=== PATIENT | female | born 1990 | race Two or more races ===

== ENCOUNTER → 2016-12-09 | Outpatient (CLI) | payer OTHER ==
[2016-04-20 01:48] VITALS: BP 131/83
[~2016-12-09] MED LIST: DOCU-27 PO; ESOM40CA; FERR325T72 PO; IBUP-1060 PO; METO5VIA4 PO; OXYC-323 PO; Ondansetron Hcl/Pf PO
[2016-12-09 16:08] LABS: BASO % 0 % (0-3); EOS % 1 % (0-3); HEMATOCRIT 39.9 % (36.0-47.0); LYMPH # 2.6 x10^3/uL (1.0-4.8); LYMPH % 19 % (24-48); MEAN CORPUSCULAR HEMOGLOBIN 28 pg (25-35); MEAN CORPUSCULAR HGB CONC 33 g/dL (31-37); MEAN CORPUSCULAR VOLUME 85 fL (79-100); MONO % 10 % (0-9); NEUT % 71 % (31-73); PLATELET COUNT 226 x10^3/uL (140-400); RED CELL DISTRIBUTION WIDTH 14.3 % (11.5-14.5); WHITE BLOOD COUNT 13.7 x10^3/uL (4.0-11.0)
== END | disposition home or self-care (01) ==
LOC: LAB 15:21
PROVIDERS: ATTEND Obstetrics & Gynecology
DX: Z32.01 Encounter for pregnancy test, result positive (principal); O21.0 Mild hyperemesis gravidarum; O34.219 Maternal care for unspecified type scar from previous cesarean delivery
CPT/HCPCS: 36415; 85027; 86593; 86703; 86850; 86900; 86901; 87340; 87341

== ENCOUNTER 2017-01-02 16:45 | Emergency (ER) | payer OTHER ==
[~2017-01-02] VITALS: Ht 152.4 cm; Wt 79.8 kg
[2017-01-02 17:03] VITALS: BP 122/78
[2017-01-02] MEDS ORDERED: ACET1TAB33 PO (17:07)
[2017-01-02] MEDS ORDERED: PRED20TA PO (17:07)
--- NOTE | 2017-01-02 17:08 | PHYS DOC ---
Past Medical History Past Medical History: No Pertinent History Past Surgical History: Other Additional Past Surgical Histo: WISDOM TEEETH EXTRACTED Alcohol Use: None Drug Use: None Adult General Chief Complaint Chief Complaint: HIP PAIN HPI HPI Patient is a 26 year old female, who is 11 weeks , presents emergency Department with atraumatic right lower back pain that radiates into her right hip. Patient states is been going on for approximately 5 days. She does not identify any causation for this. Patient denies history of spinal column fractures, spinal cord injuries or neuromuscular diseases. She has no complaints of pelvic pain, lower abdominal pain, vaginal bleeding or vaginal discharge at this time. Patient states that she did call her hand mexican food maker's office. She states she talked warm the nurses there who advised to take acetaminophen and use warm packs. Patient states this has not helped. Review of Systems Review of Systems Constitutional: Denies fever or chills [] Eyes: Denies change in visual acuity, redness, or eye pain [] HENT: Denies nasal congestion or sore throat [] Respiratory: Denies cough or shortness of breath [] Cardiovascular: No additional information not addressed in HPI [] GI: Denies abdominal pain, nausea, vomiting, bloody stools or diarrhea [] : Denies dysuria or hematuria [] Musculoskeletal: Denies back pain or joint pain [] Integument: Denies rash or skin lesions [] Neurologic: Denies headache, focal weakness or sensory changes [] Endocrine: Denies polyuria or polydipsia [] Allergies Allergies Allergies Coded Allergies Type Severity Reaction Last Updated Verified No Known Drug Allergies 11/25/15 No Physical Exam Physical Exam Constitutional: Well developed, well nourished, no acute distress, non-toxic appearance. [] HENT: Normocephalic, atraumatic, bilateral external ears normal, oropharynx moist, no oral exudates, nose normal. [] Eyes: PERRLA, EOMI, conjunctiva normal, no discharge. [] Neck: Normal range of motion, no tenderness, supple, no stridor. [] Cardiovascular:Heart rate regular rhythm, no murmur [] Lungs & Thorax: Bilateral breath sounds clear to auscultation [] Abdomen: Bowel sounds normal, soft, no tenderness, no masses, no pulsatile masses. [] Skin: Warm, dry, no erythema, no rash. [] Back: Patient's back is normal in appearance without any overlying skin lesions suggestive of shingles. She has no CVA tenderness. There is tenderness to palpation to the right paraspinous soft tissues at the level of L5/S1 extending laterally to the posterior right hip. There is no palpable defect, deformity or spasm. Extremities: No tenderness, no cyanosis, no clubbing, ROM intact, no edema. [] Neurologic: Alert and oriented X 3, normal motor function, normal sensory function, no focal deficits noted. [] Psychologic: Affect normal, judgement normal, mood normal. [] EKG EKG [] Radiology/Procedures Radiology/Procedures [] Course & Med Decision Making Course & Med Decision Making Pertinent Labs and Imaging studies reviewed. (See chart for details) [] Dragon Disclaimer Dragon Disclaimer This electronic medical record was generated, in whole or in part, using a voice recognition dictation system. Departure Departure Impression: Primary Impression: Lumbar radiculopathy, acute Disposition: HOME, SELF-CARE Condition: GOOD Referrals: NO PCP (PCP) SANDRA PARMAR Jr, MD Patient Instructions: Lumbosacral Radiculopathy Additional Instructions: 1. Take the medication as prescribed. 2. Review the discharge instructions provided for self-care and reasons to return the emergency department. 3. Contact your hand mexican food maker Thursday morning to schedule follow-up appointment. Scripts Prednisone (PREDNISONE) 20 Mg Tablet 1 TAB PO DAILY, #5 TAB Prov: ISAI OLEARY 01/02/17 Acetaminophen With Codeine (ACETAMINOPHEN-COD #3 TABLET) 1 Each Tablet 1 TAB PO PRN Q6HRS Y for PAIN for 10 Days, TAB Prov: ISAI OLEARY 01/02/17 ISAI OLEARY January 02, 2017 17:08
== END 2017-01-02 17:23 | disposition home or self-care (01) ==
LOC: ER 16:45
DX: O26.891 Other specified pregnancy related conditions, first trimester (principal); M54.16 Radiculopathy, lumbar region; Z3A.11 11 weeks gestation of pregnancy
CPT/HCPCS: 99283

== ENCOUNTER 2017-01-18 10:20 | Observation (INO) | payer OTHER ==
[~2017-01-18] VITALS: Ht 154.9 cm; Wt 79.8 kg
[~2017-01-18 10:20] MED LIST changes: +ACET1TAB33 PO; +PRED20TA PO
[2017-01-18] MEDS ORDERED: ONDANSETRON PF 4 MG/2 ML VIAL. IV ONE (11:00)
[2017-01-18] MEDS ORDERED: IV NORMAL SALINE 1000ML BAG 1,000 ML IV ONE (11:00)
[2017-01-18 11:05] LABS: BILIRUBIN,URINE NEGATIVE (NEG); GLUCOSE,URINE NEGATIVE (NEG); NITRITE,URINE NEGATIVE (NEG); PH,URINE 8.5; PROTEIN,URINE 30 mg/dL (NEG-TRACE)
[2017-01-18 11:44] LABS: BASO # 0.1 x10^3/uL (0.0-0.2); BASO % 1 % (0-3); EOS % 1 % (0-3); HEMATOCRIT 40.6 % (36.0-47.0); HEMOGLOBIN 13.6 g/dL (12.0-15.5); LYMPH # 1.6 x10^3/uL (1.0-4.8); LYMPH % 11 % (24-48); MEAN CORPUSCULAR HEMOGLOBIN 28 pg (25-35); MEAN CORPUSCULAR HGB CONC 34 g/dL (31-37); MEAN CORPUSCULAR VOLUME 84 fL (79-100); MONO % 7 % (0-9); NEUT % 81 % (31-73); PLATELET COUNT 234 x10^3/uL (140-400); RED BLOOD COUNT 4.82 x10^6/uL (3.50-5.40); RED CELL DISTRIBUTION WIDTH 14.2 % (11.5-14.5); WHITE BLOOD COUNT 14.5 x10^3/uL (4.0-11.0)
[2017-01-18 11:51] LABS: BACTERIA,URINE FEW /HPF (0-FEW); SQUAMOUS EPITHELIAL CELL,UR FEW /LPF; WBC,URINE OCC /HPF (0-4)
--- NOTE | 2017-01-18 11:53 | PHYS DOC ---
Past Medical History Past Medical History: Other Additional Past Medical Histor: hyperemesis Past Surgical History: , Other Additional Past Surgical Histo: WISDOM TEEETH EXTRACTED Alcohol Use: None Drug Use: None Adult General Chief Complaint Chief Complaint: NAUSEA/VOMITING/DIARRHA HPI HPI Patient is a 27 year female presenting to the emergency department for evaluation of nausea vomiting inability to hold anything down for the past 3 days. She says that she was constipated for one week and was taking magnesium and other [id number] medications to have a bowel movement and she has had 3 since last night which are liquid appearing. She says that she has some epigastric pain with the nausea and vomiting. The emesis is nonbloody nonbilious and her stools are nonbloody as well. Patient is approximately [address] weeks and follows with Dr. Rivas. Patient denies any vaginal bleeding vaginal discharge and dysuria or hematuria. She reports having severe nausea and vomiting which required a Zofran pump on her prior . She is taking Zofran pills currently. Review of Systems Review of Systems Constitutional: Denies fever or chills [] Eyes: Denies change in visual acuity, redness, or eye pain [] HENT: Denies nasal congestion or sore throat [] Respiratory: Denies cough or shortness of breath [] Cardiovascular: No additional information not addressed in HPI [] GI: + abdominal pain, nausea, vomiting, diarrhea [] : Denies dysuria or hematuria [] Musculoskeletal: Denies back pain or joint pain [] Integument: Denies rash or skin lesions [] Neurologic: Denies headache, focal weakness or sensory changes [] Current Medications Current Medications Current Medications Medications (Trade) Dose Ordered Sig/Irma Start Time Stop Time Status Last Admin Dose Admin Ondansetron HCl (Zofran) 8 mg 1X ONCE 01/18/17 11:00 01/18/17 11:06 DC 01/18/17 11:37 8 MG Sodium Chloride 1,000 ml @ 1,000 mls/hr 1X ONCE 01/18/17 11:00 01/18/17 11:59 DC 01/18/17 11:37 1,000 MLS/HR Allergies Allergies Allergies Coded Allergies Type Severity Reaction Last Updated Verified No Known Drug Allergies 11/25/15 No Physical Exam Physical Exam Constitutional: Well developed, well nourished, no acute distress, non-toxic appearance. [] HENT: Normocephalic, atraumatic, bilateral external ears normal, oropharynx moist, no oral exudates, nose normal. [] Eyes: PERRLA, EOMI, conjunctiva normal, no discharge. [] Neck: Normal range of motion, no tenderness, supple, no stridor. [] Cardiovascular:Heart rate regular rhythm, no murmur [] Lungs & Thorax: Bilateral breath sounds clear to auscultation [] Abdomen: Bowel sounds normal, soft, + epigastric tenderness, no rebound or guarding, no masses, no pulsatile masses. [] Skin: Warm, dry, no erythema, no rash. [] Back: No tenderness, no CVA tenderness. [] Extremities: No tenderness, no cyanosis, no clubbing, ROM intact, no edema. [] Neurologic: Alert and oriented X 3, normal motor function, normal sensory function, no focal deficits noted. [] Current Patient Data Vital Signs Vital Signs Date Time Temp Pulse Resp B/P (MAP) Pulse Ox O2 Delivery O2 Flow Rate FiO2 01/18/17 12:05 92 18 105/55 (72) 100 01/18/17 11:35 Room Air 01/18/17 10:56 98.2 98.2 Lab Values Laboratory Tests Test 01/18/17 10:58 01/18/17 11:30 Urine Collection Type Unknown Urine Color Kim Urine Clarity Turbid Urine pH 8.5 Urine Specific [place] >=1.030 Urine Protein 30 mg/dL (NEG-TRACE) Urine Glucose (UA) Negative mg/dL (NEG) Urine Ketones (Stick) >=80 mg/dL (NEG) Urine Blood Negative (NEG) Urine Nitrite Negative (NEG) Urine Bilirubin Negative (NEG) Urine Urobilinogen Dipstick 1.0 mg/dL (0.2 mg/dL) Urine Leukocyte Esterase Small (NEG) Urine RBC 1-2 /HPF (0-2) Urine WBC Occ /HPF (0-4) Urine Squamous Epithelial Cells Few /LPF Urine Amorphous Sediment Present /HPF Urine Bacteria Few /HPF (0-FEW) Urine Mucus Slight /LPF White Blood Count 14.5 x10^3/uL (4.0-11.0) H Red Blood Count 4.82 x10^6/uL (3.50-5.40) Hemoglobin 13.6 g/dL (12.0-15.5) Hematocrit 40.6 % (36.0-47.0) Mean Corpuscular Volume 84 fL (79-100) Mean Corpuscular Hemoglobin 28 pg (25-35) Mean Corpuscular Hemoglobin Concent 34 g/dL (31-37) Red Cell Distribution Width 14.2 % (11.5-14.5) Platelet Count 234 x10^3/uL (140-400) Neutrophils (%) (Auto) 81 % (31-73) H Lymphocytes (%) (Auto) 11 % (24-48) L Monocytes (%) (Auto) 7 % (0-9) Eosinophils (%) (Auto) 1 % (0-3) Basophils (%) (Auto) 1 % (0-3) Neutrophils # (Auto) 11.7 x10^3uL (1.8-7.7) H Lymphocytes # (Auto) 1.6 x10^3/uL (1.0-4.8) Monocytes # (Auto) 1.0 x10^3/uL (0.0-1.1) Eosinophils # (Auto) 0.1 x10^3/uL (0.0-0.7) Basophils # (Auto) 0.1 x10^3/uL (0.0-0.2) Sodium Level 139 mmol/L (136-145) Potassium Level 4.0 mmol/L (3.5-5.1) Chloride Level 104 mmol/L (98-107) Carbon Dioxide Level 26 mmol/L (21-32) Anion Gap 9 (6-14) Blood Urea Nitrogen 5 mg/dL (7-20) L Creatinine 0.6 mg/dL (0.6-1.0) Estimated GFR (Cockcroft-Gault) 120.8 BUN/Creatinine Ratio 8 (6-20) Glucose Level 91 mg/dL (70-99) Calcium Level 8.9 mg/dL (8.5-10.1) Magnesium Level 2.2 mg/dL (1.8-2.4) Total Bilirubin 0.4 mg/dL (0.2-1.0) Aspartate Amino Transferase (AST) 19 U/L (15-37) Alanine Aminotransferase (ALT) 32 U/L (14-59) Alkaline Phosphatase 68 U/L (46-116) Creatine Kinase 44 U/L (26-192) Total Protein 7.4 g/dL (6.4-8.2) Albumin 3.2 g/dL (3.4-5.0) L Albumin/Globulin Ratio 0.8 (1.0-1.7) L Laboratory Tests 01/18/17 11:30 Laboratory Tests 01/18/17 11:30 EKG EKG [] Radiology/Procedures Radiology/Procedures [] Course & Med Decision Making Course & Med Decision Making We will treat her symptoms check labs and then reassess. Patient says that she is feeling no better so I spoke to her [employer] doctor Darren dawkins and we will plan for admission for further observation and treatment. Dragon Disclaimer Dragon Disclaimer This electronic medical record was generated, in whole or in part, using a voice recognition dictation system. Departure Departure Impression: Primary Impression: Intractable nausea and vomiting Additional Impression: Ketonuria Disposition: ADMITTED INPATIENT Admitting Physician: Other (PEGHEE) Condition: STABLE Referrals: NO PCP (PCP) Problem Qualifiers GER TOWNSEND DO January 18, 2017 11:53
[2017-01-18 11:55] LABS: CALCIUM 8.9 mg/dL (8.5-10.1); CREATININE 0.6 mg/dL (0.6-1.0)
[2017-01-18 11:56] LABS: GFR 120.8
[2017-01-18 12:02] LABS: ALBUMIN 3.2 g/dL (3.4-5.0); ALBUMIN/GLOBULIN RATIO 0.8 (1.0-1.7); MAGNESIUM 2.2 mg/dL (1.8-2.4); TOTAL BILIRUBIN 0.4 mg/dL (0.2-1.0); TOTAL PROTEIN 7.4 g/dL (6.4-8.2)
[2017-01-18] MEDS ORDERED: ONDANSETRON PF 4 MG/2 ML VIAL. IV PRN ×2 (12:30→15:15)
[2017-01-18] MEDS ORDERED: POTASSIUM CL 20MEQ D5-0.45NACL 1,000 ML IV ONE (12:30)
[2017-01-18] MEDS ORDERED: IV RINGERS,LACTATED 1000ML 1,000 ML IV ONE (12:30)
--- NOTE | 2017-01-18 13:25 | PDOC1 ---
OB - History Hx of Present Care: Good Care Ultrasounds: Other (first trimester sono normal) Obstetrical Complications: Hyperemesis (constipation) Medical Complications: None Past Family/Social History * Past Medical, Surgical, Family and Obstetric Histories reviewed from chart. Rubella: Immune RPR/VDRL: Negative GBS Status: Unknown HBsAG: Negative OB - Chief Complaint & HPI Date of Admission: Date of Admission: January 18, 2017 at 12:26 Chief Complaint/History : 2 Para: 1 EGA: 13 Reason for admission: other (Hyperemesis) Admission Nurse Assessment Rev: Yes Problems: OB - Admission Exam Physical Exam Vitals: VS - Last 72 Hours, by Label Date Time Temp Pulse Resp B/P (MAP) Pulse Ox O2 Delivery O2 Flow Rate FiO2 01/18/17 10:56 98.2 84 20 124/64 (84) 99 Room Air 98.2 HEENT: Other (dry mucus membranes) Heart: Regular Rate Lungs: Clear Abdomen: Gravid, Non tender, Soft Extremities: No tenderness or swelling Reflexes: Normal Cervical Dilatation: None Effacement: 0% Station: Ballotable Membranes: Intact Heart Rate: Normal Contractions on Admission: None Text A: 13 wks IUP Hyperemesis Constipation P: Admit for rehydration with IV fluids. Zofran and protonix scheduled. Stool softeners, MOM and fiber for constipation. SANDRA PARMAR Jr, MD January 18, 2017 13:25
[2017-01-18 14:31] VITALS: BP 103/57
[2017-01-18] MEDS ORDERED: DOCUSATE SODIUM 100 MG CAPSULE. PO PRN (15:15)
[2017-01-18] MEDS: PANTOPRAZOLE 40 MG TABLET.DR. PO SCH (16:40)
[2017-01-18] MEDS ORDERED: METOCLOPRAMIDE HCL 10 MG/2 ML VIAL. IV PRN (16:45)
[2017-01-18] MEDS: ONDANSETRON PF 4 MG/2 ML VIAL. IV SCH (16:58)
[2017-01-18] MEDS: IV RINGERS,LACTATED 1000ML 1,000 ML IV SCH (18:22)
[2017-01-18] MEDS ORDERED: MAGNESIUM HYDROXIDE 2,400 MG/30 ML ORAL.SUSP. PO PRN (20:45)
[2017-01-18 23:25] VITALS: BP_SYST 103
[2017-01-19] MEDS: IV RINGERS,LACTATED 1000ML 1,000 ML IV SCH ×3 (00:21→13:00)
[2017-01-19] MEDS: ONDANSETRON PF 4 MG/2 ML VIAL. IV SCH ×4 (00:21→15:26)
--- NOTE | 2017-01-19 00:52 | ACF ---
Admit Criteria Forms Admit Criteria Forms Admit Criteria Forms VOMITING Clinical Indications for Admission to Inpatient Care ( Place 'X' for any and all applicable criteria): Admission is indicated for 1 or more of the following(1)(2)(3): [ ]I. Complete or partial gastrointestinal obstruction [ ]II. Vomiting due to significant metabolic derangement (eg, severe hypercalcemia, diabetic ketoacidosis) [ ]III. Other cause of vomiting requiring hospitalization (eg, poisoning, increased intracranial pressure) [X ]IV. Inpatient admission required rather than observation care because of 1 or more of the following [ ]i) Hemodynamic instability [ X]ii) Vomiting that is severe or persistent indicated by 1 or more of the following 1) Numerous episodes of vomiting in past 24hours (eg, every 1 to 2 hours) 2) Suggests severe underlying cause or complication (eg , projectile, feculent, bilious, coffee ground, bloody) 3) Appropriate antiemetic treatment (eg, repeated oral or parenteral dosing) does not sufficiently reduce vomiting within 12 to 24 hours of treatment ( X) 4) Treatment regimen necessary to adequately control vomiting requires inpatient level of care (eg, not immediately available in outpatient setting) [ ]iii) Severe electrolyte abnormalities requiring inpatient care [ ]iv) Severe pain requiring acute inpatient management( Continuous or frequent (eg, every 2 to 4 hours) parental analgesics or analgesic regimen that can only be performed or initiated in inpatient setting) [ ]v) High fever or infection requiring inpatient admission as indicated by 1 or more of the following(7)(8): [ ]1) Appropriate outpatient or observation care antimicrobial treatment unavailable, not effective, or not feasible [ ]2) Documented bacteremia [ ]3) Temp >104.9 degrees F (40.5 degrees C) (oral) [ ]4) Temp >103.1 degrees F (39.5 C) (oral) or <96.8 degrees F (36 C) (rectal) that does not respond to all emergency treatment measures [ ]vi) Acute renal failure [ ]vii) IV fluid required rather than oral rehydration to replace significant on going losses (greater than 3 L/m2 per day) [ ]viii) Parenteral nutrition regimen that must be implemented on inpatient basis [ ]ix) Other condition, treatment or monitoring requiring inpatient admission Extended stay beyond goal length of stay may be needed for(1)(4): [ ]a) Severe vomiting [ ]b) Persistent vomiting, vital sign changes, severe electrolyte imbalance , or diagnosed cause of vomiting that requires continued hospitalization (eg, gastrointestinal obstruction , increased intracranial pressure) [ ]c) Surgery to treat identified causes of vomiting (eg, bowel obstruction , intracranial process) [ ]d) Comorbid illness that requires inpatient care (eg, acute heart failure , renal failure) [ ]e) Need for inpatient endoscopy The original [employer] content created by [employer] has been revised. The portions of the content which have been revised are identified through the use of italic text or in bold, and [email or web address] has neither reviewed nor approved the modified material. All other unmodified content is copyright [employer]. Please see references footnoted in the original [employer] edition 2016 SO CAMPUZANO January 19, 2017 00:52
[2017-01-19 06:36] VITALS: BP 90/50
[2017-01-19 07:08] LABS: CALCIUM 8.5 mg/dL (8.5-10.1); CREATININE 0.5 mg/dL (0.6-1.0); GFR 149.1; POTASSIUM 3.9 mmol/L (3.5-5.1)
[2017-01-19 07:12] LABS: BASO % 0 % (0-3); EOS % 1 % (0-3); HEMATOCRIT 37.1 % (36.0-47.0); HEMOGLOBIN 11.9 g/dL (12.0-15.5); LYMPH % 18 % (24-48); MEAN CORPUSCULAR HEMOGLOBIN 28 pg (25-35); MEAN CORPUSCULAR HGB CONC 32 g/dL (31-37); MEAN CORPUSCULAR VOLUME 86 fL (79-100); MONO % 8 % (0-9); NEUT % 73 % (31-73); PLATELET COUNT 195 x10^3/uL (140-400); RED BLOOD COUNT 4.31 x10^6/uL (3.50-5.40); WHITE BLOOD COUNT 11.2 x10^3/uL (4.0-11.0)
[2017-01-19 12:30] VITALS: BP 88/48
[2017-01-19] MEDS: PANTOPRAZOLE 40 MG TABLET.DR. PO SCH (15:26)
[2017-01-19 16:40] VITALS: BP 95/49
--- NOTE | 2017-01-19 17:31 | PDOC ---
OB Progress Note Date of Service 01/19/17 Time of Evaluation 6846 Problem List Problems Medical Problems: (1) Hyperemesis gravidarum Status: Acute (2) Intractable nausea and vomiting Status: Acute (3) Ketonuria Status: Acute Notes Pt. feeling much better. She had 2-3 bowel movements since hospitalization. Lab Laboratory Tests Test 01/18/17 10:58 01/18/17 11:30 01/19/17 06:39 Urine Collection Type Unknown Urine Color Kim Urine Clarity Turbid Urine pH 8.5 Urine Specific [place] >=1.030 Urine Protein 30 mg/dL (NEG-TRACE) Urine Glucose (UA) Negative mg/dL (NEG) Urine Ketones (Stick) >=80 mg/dL (NEG) Urine Blood Negative (NEG) Urine Nitrite Negative (NEG) Urine Bilirubin Negative (NEG) Urine Urobilinogen Dipstick 1.0 mg/dL (0.2 mg/dL) Urine Leukocyte Esterase Small (NEG) Urine RBC 1-2 /HPF (0-2) Urine WBC Occ /HPF (0-4) Urine Squamous Epithelial Cells Few /LPF Urine Amorphous Sediment Present /HPF Urine Bacteria Few /HPF (0-FEW) Urine Mucus Slight /LPF White Blood Count 14.5 x10^3/uL (4.0-11.0) 11.2 x10^3/uL (4.0-11.0) Red Blood Count 4.82 x10^6/uL (3.50-5.40) 4.31 x10^6/uL (3.50-5.40) Hemoglobin 13.6 g/dL (12.0-15.5) 11.9 g/dL (12.0-15.5) Hematocrit 40.6 % (36.0-47.0) 37.1 % (36.0-47.0) Mean Corpuscular Volume 84 fL (79-100) 86 fL (79-100) Mean Corpuscular Hemoglobin 28 pg (25-35) 28 pg (25-35) Mean Corpuscular Hemoglobin Concent 34 g/dL (31-37) 32 g/dL (31-37) Red Cell Distribution Width 14.2 % (11.5-14.5) 14.0 % (11.5-14.5) Platelet Count 234 x10^3/uL (140-400) 195 x10^3/uL (140-400) Neutrophils (%) (Auto) 81 % (31-73) 73 % (31-73) Lymphocytes (%) (Auto) 11 % (24-48) 18 % (24-48) Monocytes (%) (Auto) 7 % (0-9) 8 % (0-9) Eosinophils (%) (Auto) 1 % (0-3) 1 % (0-3) Basophils (%) (Auto) 1 % (0-3) 0 % (0-3) Neutrophils # (Auto) 11.7 x10^3uL (1.8-7.7) 8.2 x10^3uL (1.8-7.7) Lymphocytes # (Auto) 1.6 x10^3/uL (1.0-4.8) 2.0 x10^3/uL (1.0-4.8) Monocytes # (Auto) 1.0 x10^3/uL (0.0-1.1) 0.9 x10^3/uL (0.0-1.1) Eosinophils # (Auto) 0.1 x10^3/uL (0.0-0.7) 0.1 x10^3/uL (0.0-0.7) Basophils # (Auto) 0.1 x10^3/uL (0.0-0.2) 0.0 x10^3/uL (0.0-0.2) Sodium Level 139 mmol/L (136-145) 139 mmol/L (136-145) Potassium Level 4.0 mmol/L (3.5-5.1) 3.9 mmol/L (3.5-5.1) Chloride Level 104 mmol/L (98-107) 106 mmol/L (98-107) Carbon Dioxide Level 26 mmol/L (21-32) 24 mmol/L (21-32) Anion Gap 9 (6-14) 9 (6-14) Blood Urea Nitrogen 5 mg/dL (7-20) 3 mg/dL (7-20) Creatinine 0.6 mg/dL (0.6-1.0) 0.5 mg/dL (0.6-1.0) Estimated GFR (Cockcroft-Gault) 120.8 149.1 BUN/Creatinine Ratio 8 (6-20) Glucose Level 91 mg/dL (70-99) 94 mg/dL (70-99) Calcium Level 8.9 mg/dL (8.5-10.1) 8.5 mg/dL (8.5-10.1) Magnesium Level 2.2 mg/dL (1.8-2.4) Total Bilirubin 0.4 mg/dL (0.2-1.0) Aspartate Amino Transf (AST/SGOT) 19 U/L (15-37) Alanine Aminotransferase (ALT/SGPT) 32 U/L (14-59) Alkaline Phosphatase 68 U/L (46-116) Creatine Kinase 44 U/L (26-192) Total Protein 7.4 g/dL (6.4-8.2) Albumin 3.2 g/dL (3.4-5.0) Albumin/Globulin Ratio 0.8 (1.0-1.7) Laboratory Tests Test 01/19/17 06:39 White Blood Count 11.2 x10^3/uL (4.0-11.0) Red Blood Count 4.31 x10^6/uL (3.50-5.40) Hemoglobin 11.9 g/dL (12.0-15.5) Hematocrit 37.1 % (36.0-47.0) Mean Corpuscular Volume 86 fL (79-100) Mean Corpuscular Hemoglobin 28 pg (25-35) Mean Corpuscular Hemoglobin Concent 32 g/dL (31-37) Red Cell Distribution Width 14.0 % (11.5-14.5) Platelet Count 195 x10^3/uL (140-400) Neutrophils (%) (Auto) 73 % (31-73) Lymphocytes (%) (Auto) 18 % (24-48) Monocytes (%) (Auto) 8 % (0-9) Eosinophils (%) (Auto) 1 % (0-3) Basophils (%) (Auto) 0 % (0-3) Neutrophils # (Auto) 8.2 x10^3uL (1.8-7.7) Lymphocytes # (Auto) 2.0 x10^3/uL (1.0-4.8) Monocytes # (Auto) 0.9 x10^3/uL (0.0-1.1) Eosinophils # (Auto) 0.1 x10^3/uL (0.0-0.7) Basophils # (Auto) 0.0 x10^3/uL (0.0-0.2) Sodium Level 139 mmol/L (136-145) Potassium Level 3.9 mmol/L (3.5-5.1) Chloride Level 106 mmol/L (98-107) Carbon Dioxide Level 24 mmol/L (21-32) Anion Gap 9 (6-14) Blood Urea Nitrogen 3 mg/dL (7-20) Creatinine 0.5 mg/dL (0.6-1.0) Estimated GFR (Cockcroft-Gault) 149.1 Glucose Level 94 mg/dL (70-99) Calcium Level 8.5 mg/dL (8.5-10.1) Medications Current Medications Sodium Chloride 1,000 ml @ 1,000 mls/hr 1X ONCE IV Last administered on 11:37; Start 01/18/17 at 11:00; Stop 01/18/17 at 17:03; Status DC Ondansetron HCl (Zofran) 8 mg 1X ONCE IV Last administered on 01/18/17 11:37 ; Start 01/18/17 at 11:00; Stop 01/18/17 at 17:03; Status DC Potassium Chloride/Dextrose/ Sod Cl 1,000 ml @ 125 mls/hr 1X ONCE IV ; Start 01/18/17 at 12:30; Stop 01/18/17 at 12:30; Status DC Ondansetron HCl (Zofran) 4 mg PRN Q8HRS PRN IV NAUSEA/VOMITING; Start 01/18/17 at 12:30; Stop 01/18/17 at 17:03; Status DC Ringer's Solution 1,000 ml @ 175 mls/hr 1X ONCE IV Last administered on 12:47; Start 01/18/17 at 12:30; Stop 01/18/17 at 18:12; Status DC Ondansetron HCl (Zofran) 4 mg PRN Q6HRS PRN IV NAUSEA/VOMITING; Start 01/18/17 at 15:15; Stop 01/18/17 at 17:03; Status DC Pantoprazole Sodium (Protonix) 40 mg DAILYAC PO Last administered on 5/22/17at 15:26; Start 01/18/17 at 15:30 Docusate Sodium (Colace) 100 mg PRN BID PRN PO CONSTIPATION; Start 01/18/17 at 15:15 Ondansetron HCl (Zofran) 8 mg Q6HRS IV Last administered on 01/19/17 15:26; Start 01/18/17 at 17:00 Metoclopramide HCl (Reglan) 10 mg PRN Q8HRS PRN IV NAUSEA/VOMITING; Start 01/18 at 16:45 Ringer's Solution 1,000 ml @ 175 mls/hr Q5H43M IV Last administered on 13:00; Start 01/18/17 at 18:30 Magnesium Hydroxide (Milk Of Magnesia) 2,400 mg PRN DAILY PRN PO CONSTIPATION; Start 01/18/17 at 20:45 Active Scripts Active Prednisone 20 Mg Tablet 1 Tab PO DAILY Acetaminophen-Cod #3 Tablet (Acetaminophen/Codeine Phosphate) 1 Each Tablet 1 Tab PO PRN Q6HRS PRN 10 Days Percocet 5-325 Mg Tablet (Oxycodone/Acetaminophen) 1 Each Tablet 1-2 Tab PO Q4- 6HRS Feosol (Ferrous Sulfate) 325 Mg Tablet 325 Mg PO BIDAFTMEAL Ibuprofen 800 Mg Tablet 800 Mg PO PRN Q8HRS PRN Colace (Docusate Sodium) 100 Mg Capsule 100 Mg PO PRN BID PRN [Ondansetron Hcl/Pf] 4 MG/2 ML Vial 4 Mg PO PRN Q6HRS PRN Metoclopramide Hcl 10 Mg/2 Ml Vial 10 Mg PO PRN Q6HRS PRN Reported Nexium Capsule (Esomeprazole Magnesium) 40 Mg Capsule.dr Assessment 13 wks IUP Constipation: improved Plan of Care: See new orders (D/c home.) SANDRA PARMAR Jr, MD January 19, 2017 17:31
--- NOTE | 2017-01-19 17:32 | DISCH ---
DISCHARGE INSTRUCTIONS Condition on Discharge Condition on Discharge: Stable Activity After Discharge Activity Instructions for Disc: Activity as tolerated Lifting Instructions after Dis: No heavy lifting Driving Instructions after Dis: Do not drive today Diet after Discharge Diet after Discharge: Regular Contacting the DRSaud after DC Call your doctor for: Concerns you may have Follow-Up Follow up with: Dr. Rivas in 1 week. SANDRA RIVAS Jr, MD January 19, 2017 17:32
== END 2017-01-19 18:15 | disposition home or self-care (01) ==
LOC: ER 11:12 → 3 NORTH 12:26
PROVIDERS: ADMIT Obstetrics & Gynecology; ATTEND Obstetrics & Gynecology
DX: O21.0 Mild hyperemesis gravidarum (principal); O26.891 Other specified pregnancy related conditions, first trimester; K59.00 Constipation, unspecified; Z3A.13 13 weeks gestation of pregnancy
CPT/HCPCS: 36415; 80048; 80053; 81001; 82550; 83735; 85027; 87086; 96361; 96374; 96376; 99285; G0378; J2405; J7030; G0379; J7120

== ENCOUNTER → 2017-03-06 | Outpatient (CLI) | payer OTHER ==
[~2017-03-06] MED LIST changes: +DOCU-109 PO; -DOCU-27 PO
--- NOTE | 2017-03-06 14:59 | RAD ---
Obstetrical ultrasound, 03/06/2017: History: survey There is a single intrauterine fetus present in a transverse orientation. The biparietal diameter measures 4.8 cm compatible with a gestational age of 20-21 weeks. This corresponds well to the other measurements and yields a sonographic EDC of 07/19/2017. Normal activity and heart motion were seen. The heart rate was 160 bpm. No specific abnormality is detected. A normal amount of amniotic fluid is present. The placenta lies anteriorly extending laterally to the right. There is no evidence of a placenta previa. The maternal urinary bladder is distended, compressing the lower uterine segment and accentuating the cervical length. IMPRESSION: Single viable intrauterine fetus of 20-21 weeks gestational age as described above.
== END | disposition home or self-care (01) ==
LOC: US 14:03
PROVIDERS: ATTEND Obstetrics & Gynecology
DX: O26.842 Uterine size-date discrepancy, second trimester (principal); Z3A.20 20 weeks gestation of pregnancy
CPT/HCPCS: 76805

== ENCOUNTER 2017-04-24 22:44 | Observation (INO) | payer OTHER ==
[2017-04-24] MEDS ORDERED: ONDANSETRON PF 4 MG/2 ML VIAL. IV PRN (23:00)
[2017-04-24] MEDS ORDERED: IV RINGERS,LACTATED 1000ML 1,000 ML IV SCH (23:00)
[2017-04-24 23:30] LABS: BILIRUBIN,URINE NEGATIVE (NEG); GLUCOSE,URINE NEGATIVE (NEG); NITRITE,URINE NEGATIVE (NEG); PH,URINE 6.5; PROTEIN,URINE NEGATIVE (NEG-TRACE); UROBILINOGEN,URINE 0.2 mg/dL (0.2 mg/dL)
[2017-04-24 23:36] LABS: BACTERIA,URINE 0 /HPF (0-FEW); RBC,URINE 0 /HPF (0-2); SQUAMOUS EPITHELIAL CELL,UR FEW /LPF
== END 2017-04-25 01:10 | disposition home or self-care (01) ==
LOC: 3 SO LND 22:44
PROVIDERS: ADMIT Obstetrics & Gynecology; ATTEND Obstetrics & Gynecology
DX: O21.2 Late vomiting of pregnancy (principal); O26.892 Other specified pregnancy related conditions, second trimester; R10.30 Lower abdominal pain, unspecified; M54.9 Dorsalgia, unspecified; R12 Heartburn; R07.81 Pleurodynia; Z3A.27 27 weeks gestation of pregnancy
CPT/HCPCS: 81001; 87086; G0378; G0379

== ENCOUNTER 2017-06-15 17:36 | Observation (INO) | payer OTHER ==
[2017-07-04] MEDS ORDERED: OXYC-323 PO (16:10)
[2017-07-04] MEDS ORDERED: DOCU-109 PO (16:10)
[2017-07-04] MEDS ORDERED: IBUP-1060 PO (16:10)
== END 2017-06-15 19:55 | disposition home or self-care (01) ==
LOC: 3 SO LND 17:36
PROVIDERS: ADMIT Obstetrics & Gynecology; ATTEND Obstetrics & Gynecology
DX: O26.893 Other specified pregnancy related conditions, third trimester (principal); R10.30 Lower abdominal pain, unspecified; R51 Headache; Z3A.34 34 weeks gestation of pregnancy
CPT/HCPCS: G0378; G0379

== ENCOUNTER 2017-07-01 04:37 | Observation (INO) | payer OTHER ==
[2017-07-01] MEDS ORDERED: IV RINGERS,LACTATED 1000ML 1,000 ML IV SCH (04:44)
[2017-07-01 05:19] LABS: BILIRUBIN,URINE NEGATIVE (NEG); GLUCOSE,URINE NEGATIVE (NEG); NITRITE,URINE NEGATIVE (NEG); PROTEIN,URINE NEGATIVE (NEG-TRACE)
[2017-07-01 05:40] LABS: SQUAMOUS EPITHELIAL CELL,UR FEW /LPF
[2017-07-01 05:41] LABS: BACTERIA,URINE FEW /HPF (0-FEW); RBC,URINE OCC /HPF (0-2)
== END 2017-07-01 07:55 | disposition home or self-care (01) ==
LOC: 3 SO LND 04:37
PROVIDERS: ADMIT Obstetrics & Gynecology; ATTEND Obstetrics & Gynecology
DX: O62.9 Abnormality of forces of labor, unspecified (principal); Z3A.36 36 weeks gestation of pregnancy
CPT/HCPCS: 81001; 87086; G0378; G0379

== ENCOUNTER 2019-03-17 10:33 | Observation (INO) | payer OTHER ==
[~2019-03-17] VITALS: Ht 152.4 cm; Wt 71.2 kg
[~2019-03-17 10:33] MED LIST changes: -OXYC-323 PO; +OXYC1TAB15 PO
[2019-03-17] MEDS ORDERED: IV NORMAL SALINE 1000ML BAG 1,000 ML IV ONE (10:45)
[2019-03-17 11:08] LABS: BASO % 0 % (0-3); EOS % 0 % (0-3); HEMATOCRIT 41.3 % (36.0-47.0); HEMOGLOBIN 13.6 g/dL (12.0-15.5); LYMPH % 15 % (24-48); MEAN CORPUSCULAR HEMOGLOBIN 28 pg (25-35); MEAN CORPUSCULAR HGB CONC 33 g/dL (31-37); MEAN CORPUSCULAR VOLUME 84 fL (79-100); MONO % 8 % (0-9); NEUT # 9.9 x10^3/uL (1.8-7.7); NEUT % 76 % (31-73); PLATELET COUNT 217 x10^3/uL (140-400); RED BLOOD COUNT 4.91 x10^6/uL (3.50-5.40); RED CELL DISTRIBUTION WIDTH 14.7 % (11.5-14.5)
[2019-03-17 11:14] LABS: CREATININE 0.7 mg/dL (0.6-1.0); GFR 99.6; POTASSIUM 3.6 mmol/L (3.5-5.1)
[2019-03-17] MEDS ORDERED: ONDANSETRON PF 4 MG/2 ML VIAL. IV ONE (11:15)
--- NOTE | 2019-03-17 11:16 | PHYS DOC ---
Past Medical History Past Medical History: Other Additional Past Medical Histor: hyperemesis Past Surgical History: , Other Additional Past Surgical Histo: WISDOM TEEETH EXTRACTED Alcohol Use: None Drug Use: None Adult General Chief Complaint Chief Complaint: VOMITING IN HPI HPI Patient is a 29 year old female, accompanied by her , with complaints of nausea and vomiting in . Patient states she was seen by Dr. Blanco yesterday who told her to go to the emergency department if her nausea and vomiting persisted so that she could be admitted to the hospital. Patient states she is 3 para 2, 0. She denies any abdominal pain, abnormal vaginal discharge, dysuria, increased urinary frequency, or hematuria. Patient s tates she has had some spotting with this but denies any at this time. She states she has vomited at least 12 times since yesterday evening. Her last menstrual period was on February 01, 2019, according to her LMP her EDC is November [id number]. Patient denies any pain at this time. Review of Systems Review of Systems Constitutional: Denies fever or chills [] Eyes: Denies change in visual acuity, redness, or eye pain [] HENT: Denies nasal congestion or sore throat; reports dry lips and dry mouth [] Respiratory: Denies cough or shortness of breath [] Cardiovascular: No additional information not addressed in HPI [] GI: Denies abdominal pain, or diarrhea; see history of present illness : Denies dysuria or hematuria; see history of present illness [] Musculoskeletal: Denies back pain or joint pain [] Integument: Denies rash or skin lesions [] Neurologic: Denies headache, focal weakness or sensory changes [] Complete systems were reviewed and found to be within normal limits, except as documented in this note. Current Medications Current Medications Current Medications Medications (Trade) Dose Ordered Sig/Irma Start Time Stop Time Status Last Admin Dose Admin Ondansetron HCl (Zofran) 4 mg 1X ONCE 03/17/19 11:15 03/17/19 11:16 DC 03/17/19 11:17 4 MG Sodium Chloride 1,000 ml @ 1,000 mls/hr 1X ONCE 03/17/19 10:45 03/17/19 11:44 DC 03/17/19 10:45 1,000 MLS/HR Allergies Allergies Allergies Coded Allergies Type Severity Reaction Last Updated Verified No Known Drug Allergies 11/25/15 No Physical Exam Physical Exam Constitutional: Well developed, well nourished, no acute distress, non-toxic appearance. [] HENT: Normocephalic, atraumatic, bilateral external ears normal, dry mucous membranes, dry lips, no oral exudates, nose normal. [] Eyes: conjunctiva normal, no discharge. [] Neck: Normal range of motion, no stridor. [] Cardiovascular:Heart rate regular rhythm, no murmur [] Lungs & Thorax: Bilateral breath sounds clear to auscultation [] Abdomen: Bowel sounds normal, soft, no tenderness, no guarding, no rebound tenderness, no masses, no pulsatile masses. [] Skin: Warm, dry, no erythema, no rash, no tenting [] Extremities: No cyanosis, ROM intact, Neurologic: Alert and oriented X 3, no focal deficits noted. [] Psychologic: Affect normal, judgement normal, mood normal. [] Current Patient Data Vital Signs Vital Signs Date Time Temp Pulse Resp B/P (MAP) Pulse Ox O2 Delivery O2 Flow Rate FiO2 03/17/19 12:45 78 14 97/53 (68) 99 Room Air 03/17/19 10:50 98.7 98.7 Lab Values Laboratory Tests Test 03/17/19 10:45 03/17/19 10:49 03/17/19 10:50 Urine Collection Type Unknown Urine Color Yellow Urine Clarity Clear Urine pH 6.0 Urine Specific [place] 1.025 Urine Protein Negative mg/dL (NEG-TRACE) Urine Glucose (UA) Negative mg/dL (NEG) Urine Ketones (Stick) Negative mg/dL (NEG) Urine Blood Negative (NEG) Urine Nitrite Negative (NEG) Urine Bilirubin Negative (NEG) Urine Urobilinogen Dipstick 1.0 mg/dL (0.2 mg/dL) Urine Leukocyte Esterase Small (NEG) Urine RBC 0 /HPF (0-2) Urine WBC 1-4 /HPF (0-4) Urine Squamous Epithelial Cells Few /LPF Urine Bacteria 0 /HPF (0-FEW) POC Urine HCG, Qualitative Hcg positive (Negative) White Blood Count 13.0 x10^3/uL (4.0-11.0) H Red Blood Count 4.91 x10^6/uL (3.50-5.40) Hemoglobin 13.6 g/dL (12.0-15.5) Hematocrit 41.3 % (36.0-47.0) Mean Corpuscular Volume 84 fL (79-100) Mean Corpuscular Hemoglobin 28 pg (25-35) Mean Corpuscular Hemoglobin Concent 33 g/dL (31-37) Red Cell Distribution Width 14.7 % (11.5-14.5) H Platelet Count 217 x10^3/uL (140-400) Neutrophils (%) (Auto) 76 % (31-73) H Lymphocytes (%) (Auto) 15 % (24-48) L Monocytes (%) (Auto) 8 % (0-9) Eosinophils (%) (Auto) 0 % (0-3) Basophils (%) (Auto) 0 % (0-3) Neutrophils # (Auto) 9.9 x10^3/uL (1.8-7.7) H Lymphocytes # (Auto) 2.0 x10^3/uL (1.0-4.8) Monocytes # (Auto) 1.0 x10^3/uL (0.0-1.1) Eosinophils # (Auto) 0.0 x10^3/uL (0.0-0.7) Basophils # (Auto) 0.0 x10^3/uL (0.0-0.2) Sodium Level 139 mmol/L (136-145) Potassium Level 3.6 mmol/L (3.5-5.1) Chloride Level 103 mmol/L (98-107) Carbon Dioxide Level 24 mmol/L (21-32) Anion Gap 12 (6-14) Blood Urea Nitrogen 9 mg/dL (7-20) Creatinine 0.7 mg/dL (0.6-1.0) Estimated GFR (Cockcroft-Gault) 99.6 BUN/Creatinine Ratio 13 (6-20) Glucose Level 100 mg/dL (70-99) H Calcium Level 9.0 mg/dL (8.5-10.1) Magnesium Level 1.8 mg/dL (1.8-2.4) Total Bilirubin 0.5 mg/dL (0.2-1.0) Aspartate Amino Transferase (AST) 15 U/L (15-37) Alanine Aminotransferase (ALT) 23 U/L (14-59) Alkaline Phosphatase 55 U/L (46-116) Total Protein 7.6 g/dL (6.4-8.2) Albumin 3.9 g/dL (3.4-5.0) Albumin/Globulin Ratio 1.1 (1.0-1.7) Laboratory Tests 03/17/19 10:50 Laboratory Tests 03/17/19 10:50 EKG EKG [] Radiology/Procedures Radiology/Procedures [] Course & Med Decision Making Course & Med Decision Making Pertinent Labs and Imaging studies reviewed. (See chart for details) dx: hyperemesis gravidarum CBC unremarkable, glucose 100 cmp otherwise unremarkable, UA 1-4 WBC, no bacteria, negative nitrites Pt given 1L of NS in the ER and 4 mg zofran IV. decreased nausea and no vomiting after meds. [address] Rivas will admit patient for observation for hyperemesis gravidarum [] Dragon Disclaimer Dragon Disclaimer This electronic medical record was generated, in whole or in part, using a voice recognition dictation system. Departure Departure Impression: Primary Impression: Hyperemesis gravidarum Disposition: 09 ADMITTED INPATIENT Admitting Physician: ELA (steve) Condition: STABLE Referrals: SANDRA RIVAS Jr, MD (PCP) MARTELL DAUGHERTY WEIR FISHERMAN Mar 17, 2019 11:16
[2019-03-17 11:20] LABS: ALBUMIN 3.9 g/dL (3.4-5.0); ALBUMIN/GLOBULIN RATIO 1.1 (1.0-1.7); MAGNESIUM 1.8 mg/dL (1.8-2.4); TOTAL BILIRUBIN 0.5 mg/dL (0.2-1.0); TOTAL PROTEIN 7.6 g/dL (6.4-8.2)
[2019-03-17 11:57] LABS: BILIRUBIN,URINE NEGATIVE (NEG); CLARITY,URINE CLEAR; COLOR,URINE YELLOW; NITRITE,URINE NEGATIVE (NEG); PROTEIN,URINE NEGATIVE (NEG-TRACE)
[2019-03-17 12:28] LABS: BACTERIA,URINE 0 /HPF (0-FEW); RBC,URINE 0 /HPF (0-2); SQUAMOUS EPITHELIAL CELL,UR FEW /LPF
[2019-03-17] MEDS ORDERED: ONDANSETRON PF 4 MG/2 ML VIAL. IV PRN (13:00)
[2019-03-17] MEDS ORDERED: ONDANSETRON PF 4 MG/2 ML VIAL. IV SCH (13:30)
[2019-03-17] MEDS ORDERED: METOCLOPRAMIDE HCL 10 MG/2 ML VIAL. IV PRN (13:30)
[2019-03-17] MEDS: PROMETHAZINE 25 MG SUPP.RECT. PR SCH ×2 (14:26→20:54)
[2019-03-17 14:43] VITALS: BP 95/64
--- NOTE | 2019-03-17 15:28 | RAD ---
Indication: patient ultrasound for determining dates of . TECHNIQUE: Ultrasound OB less than 14 weeks. COMPARISON: None FINDINGS: Uterus is anteverted and measures 10.7 x 5.0 x 6.8 cm. Single intrauterine line cystic structure is seen with mean sac diameter of 1.8 cm corresponding to gestation age of 6 weeks 5 days. Yolk sac is seen and measures 2.4 mm. No pole seen.. Right ovary measures 3.9 x 2.7 x 3.9 cm and shows blood flow. Cervix is closed and measures 3.7 cm in length. Left ovary not visualized. No free pelvic fluid. IMPRESSION: Intrauterine gestation sac without visualization of pole. Findings may be secondary to early although failed first trimester is not ruled out. Follow-up ultrasound and correlation with Electronically signed by: Dwain Medeiros DO (03/17/2019 3:25 PM) [facility]
[2019-03-17 18:00] VITALS: BP 102/82
[2019-03-17] MEDS: IV RINGERS,LACTATED 1000ML 1,000 ML IV SCH (20:10)
[2019-03-17 21:00] VITALS: BP 103/56
[2019-03-18 05:00] VITALS: BP 105/60
--- NOTE | 2019-03-18 06:03 | NUR ---
The patient had a very uneventful night. No nausea, or vomiting. Able to drink fluids without any complications. Ambulated to and from the bathroom and around the room. IVF infusing without any sign or symptoms of complications. Currently resting quietly with eyes closed. Mother at the bedside. Call calderon is in reach.
[2019-03-18 08:05] VITALS: BP 98/51
[2019-03-18] MEDS: IV RINGERS,LACTATED 1000ML 1,000 ML IV SCH (08:54)
[2019-03-18] MEDS: PROMETHAZINE 25 MG SUPP.RECT. PR SCH (08:54)
[2019-03-18] MEDS ORDERED: ONDANSETRON PF 4 MG/2 ML VIAL. IV PRN (09:00)
--- NOTE | 2019-03-18 12:51 | PDOC1 ---
OB - History Hx of Present Care: Limited Care Ultrasounds: No ultrasounds Obstetrical Complications: Hyperemesis Medical Complications: None Past Family/Social History * Past Medical, Surgical, Family and Obstetric Histories reviewed from chart. Rubella: Immune RPR/VDRL: Negative GBS Status: Unknown HBsAG: Negative OB - Chief Complaint & HPI Date of Admission: Date of Admission: Mar 17, 2019 at 12:51 Chief Complaint/History : 3 Para: 2 EGA: 6 Reason for admission: observation, other (Hyperemesis gravidarum) Admission Nurse Assessment Rev: Yes OB - Admission Exam Physical Exam Vitals: VS - Last 72 Hours, by Label Date Time Temp Pulse Resp B/P (MAP) Pulse Ox O2 Delivery O2 Flow Rate FiO2 03/18/19 08:05 97.5 74 18 98/51 (67) 99 Room Air 97.5 03/18/19 05:00 98.5 78 105/60 (75) 98 98.5 03/17/19 21:00 99.0 76 103/56 (72) 98 99.0 03/17/19 18:00 98.8 78 18 102/82 (89) 98.8 03/17/19 14:43 99.1 78 18 95/64 (74) 98 Room Air 99.1 03/17/19 13:15 77 14 111/58 (75) 99 Room Air 03/17/19 12:45 78 14 97/53 (68) 99 Room Air 03/17/19 12:15 68 14 97/57 (70) 99 Room Air 03/17/19 11:45 69 14 89/50 (63) 99 Room Air 03/17/19 11:15 73 14 97/52 (67) 100 Room Air 03/17/19 10:50 98.7 83 16 109/59 (76) 99 Room Air 98.7 HEENT: Other (dry mucous membranes) Lungs: Clear Abdomen: Gravid, Non tender, Soft Extremities: No tenderness or swelling Reflexes: Normal Cervical Dilatation: None Effacement: 0% Station: Ballotable Membranes: Intact Contractions on Admission: None Text A: 6 wks IUP Hyperemesis Gravidarum Dehydration P: Observation for IV hydration and antiemetics. SANDRA PARMAR Jr, MD Mar 18, 2019 12:51
--- NOTE | 2019-03-18 14:34 | DISCH ---
DISCHARGE INSTRUCTIONS Condition on Discharge Condition on Discharge: Stable Activity After Discharge Activity Instructions for Disc: Activity as tolerated Lifting Instructions after Dis: No heavy lifting, No pulling or pushing, Do not lift >10 pounds Driving Instructions after Dis: Do not drive today Weight Bearing Status after Di: As tolerated Diet after Discharge Diet after Discharge: Regular Diet Texture: Regular Contacting the DRSaud after DC Call your doctor for: Concerns you may have Follow-Up Follow up with: Dr. Rivas in 3 weeks. Treatment/Equipment after DC Adaptive Equipment Issued: None SANDRA RIVAS Jr, MD Mar 18, 2019 14:34
[2019-03-18 14:50] VITALS: BP 96/56
--- NOTE | 2019-03-18 15:35 | NUR ---
Discharge Note: Pt. denies questions or needs. Pt. states discharge medications prescribed by Dr. Rivas have already been filled from her last OB appointment. Ambulatory, denies need for WC. Pt. discharged home with family and belongings. Narcisa Vela RN
== END 2019-03-18 15:35 | disposition home or self-care (01) ==
LOC: ER 10:33 → 3 NORTH 12:51
PROVIDERS: ADMIT Obstetrics & Gynecology; ATTEND Obstetrics & Gynecology
DX: O21.0 Mild hyperemesis gravidarum (principal); O99.281 Endocrine, nutritional and metabolic diseases complicating pregnancy, first trimester; E86.0 Dehydration; Z3A.01 Less than 8 weeks gestation of pregnancy
CPT/HCPCS: 36415; 76801; 80053; 81001; 81025; 83735; 85025; 87086; 96361; 96374; 96376; 99284; G0378; J2405; J7030; J7120; G0379

== ENCOUNTER 2019-04-06 11:07 | Emergency (ER) | payer OTHER ==
[~2019-04-06] VITALS: Ht 152.4 cm; Wt 71.0 kg
[2019-04-06] MEDS ORDERED: IV NORMAL SALINE 1000ML BAG 1,000 ML IV ONE (12:45)
[2019-04-06] MEDS ORDERED: ONDANSETRON PF 4 MG/2 ML VIAL. IV ONE (13:00)
[2019-04-06] MEDS ORDERED: PROCHLORPERAZINE 10 MG/2 ML VIAL. IV ONE (13:00)
[2019-04-06 13:03] LABS: BASO % 0 % (0-3); EOS # 0.1 x10^3/uL (0.0-0.7); EOS % 1 % (0-3); HEMATOCRIT 40.5 % (36.0-47.0); HEMOGLOBIN 13.3 g/dL (12.0-15.5); LYMPH % 21 % (24-48); MEAN CORPUSCULAR HEMOGLOBIN 28 pg (25-35); MEAN CORPUSCULAR HGB CONC 33 g/dL (31-37); MEAN CORPUSCULAR VOLUME 84 fL (79-100); MONO % 10 % (0-9); NEUT # 6.7 x10^3/uL (1.8-7.7); NEUT % 69 % (31-73); PLATELET COUNT 205 x10^3/uL (140-400); RED BLOOD COUNT 4.82 x10^6/uL (3.50-5.40); WHITE BLOOD COUNT 9.8 x10^3/uL (4.0-11.0)
[2019-04-06 13:03] LABS: BILIRUBIN,URINE NEGATIVE (NEG); CLARITY,URINE CLEAR; COLOR,URINE YELLOW; NITRITE,URINE NEGATIVE (NEG); PH,URINE 6.5; PROTEIN,URINE NEGATIVE (NEG-TRACE); UROBILINOGEN,URINE 0.2 mg/dL (0.2 mg/dL)
[2019-04-06 13:09] LABS: BARBITURATES NEG (NEG); BENZODIAZEPINES NEG (NEG); CANNABINOIDS NEG (NEG); COCAINE NEG (NEG); METHADONE NEG (NEG); OPIATES NEG (NEG); PHENCYCLIDINE NEG (NEG)
[2019-04-06 13:11] LABS: HYALINE CASTS, URINE FEW /HPF; SQUAMOUS EPITHELIAL CELL,UR MOD /LPF
[2019-04-06 13:13] LABS: BACTERIA,URINE FEW /HPF (0-FEW); RBC,URINE 0 /HPF (0-2)
[2019-04-06 13:17] LABS: AMPHETAMINE/METHAMPHETAMINE NEG (NEG)
[2019-04-06] MEDS ORDERED: PROMETHAZINE 12.5 MG TABLET. ONE (13:24)
[2019-04-06 13:34] LABS: CALCIUM 8.8 mg/dL (8.5-10.1); CREATININE 0.6 mg/dL (0.6-1.0); POTASSIUM 3.6 mmol/L (3.5-5.1)
[2019-04-06 13:40] LABS: ALBUMIN 3.2 g/dL (3.4-5.0); ALBUMIN/GLOBULIN RATIO 0.9 (1.0-1.7); TOTAL BILIRUBIN 0.2 mg/dL (0.2-1.0); TOTAL PROTEIN 6.9 g/dL (6.4-8.2)
[2019-04-06] MEDS ORDERED: PROMETHAZINE 12.5 MG TABLET. PO ONE (13:45)
[2019-04-06] MEDS ORDERED: cefTRIAXone IV Push 1 GM VIAL. IVP ONE (14:30)
[2019-04-06 14:45] VITALS: BP 100/58
[2019-04-06] MEDS ORDERED: CEPH500C PO (14:50)
[2019-04-06] MEDS ORDERED: METO10TA81 PO (14:50)
--- NOTE | 2019-04-06 14:50 | PHYS DOC ---
Past Medical History Past Medical History: Other Additional Past Medical Histor: hyperemesis Past Surgical History: Additional Past Surgical Histo: BLADDER SURGERY Alcohol Use: None Drug Use: None Adult General Chief Complaint Chief Complaint: VOMITING IN HPI HPI Patient is a 29 year old female 3 para 2 currently 9 weeks presenting to the ED today with nausea and vomiting that began yesterday. Patient is also complaining of dysuria. Denies any abdominal pain. She states she's had issues with since the beginning of this . She is currently on Zofran and promethazine suppositories which she states she tried with minimal relief Review of Systems Review of Systems Constitutional: Denies fever or chills [] Eyes: Denies change in visual acuity, redness, or eye pain [] HENT: Denies nasal congestion or sore throat [] Respiratory: Denies cough or shortness of breath [] Cardiovascular: No additional information not addressed in HPI [] GI: Reports nausea, vomiting in , denies abdominal pain, bloody stools or diarrhea [] : Denies dysuria or hematuria [] Musculoskeletal: Denies back pain or joint pain [] Integument: Denies rash or skin lesions [] Neurologic: Denies headache, focal weakness or sensory changes [] All other systems were reviewed and found to be within normal limits, except as documented in this note. Current Medications Current Medications Current Medications Medications (Trade) Dose Ordered Sig/Irma Start Time Stop Time Status Last Admin Dose Admin Ceftriaxone Sodium (Rocephin) 1 gm 1X ONCE 04/06/19 14:30 04/06/19 14:31 DC 04/06/19 14:36 1 GM Ondansetron HCl (Zofran) 4 mg 1X ONCE 04/06/19 13:00 04/06/19 13:01 DC 04/06/19 13:03 4 MG Prochlorperazine Edisylate (Compazine) 10 mg 1X ONCE 04/06/19 13:00 04/06/19 13:01 DC 04/06/19 13:03 10 MG Promethazine HCl (Phenergan) 12.5 mg STK-MED ONCE 04/06/19 13:24 04/06/19 13:24 DC Sodium Chloride 1,000 ml @ 1,000 mls/hr 1X ONCE 04/06/19 12:45 04/06/19 13:44 DC 04/06/19 13:03 1,000 MLS/HR Allergies Allergies Allergies Coded Allergies Type Severity Reaction Last Updated Verified No Known Drug Allergies 11/25/15 No Physical Exam Physical Exam Constitutional: Well developed, well nourished, no acute distress, non-toxic appearance. [] HENT: Normocephalic, atraumatic, bilateral external ears normal, oropharynx moist, no oral exudates, nose normal. [] Eyes: PERRLA, EOMI, conjunctiva normal, no discharge. [] Neck: Normal range of motion, no tenderness, supple, no stridor. [] Cardiovascular:Heart rate regular rhythm, no murmur [] Lungs & Thorax: Bilateral breath sounds clear to auscultation [] Abdomen: Bowel sounds normal, soft, no tenderness, no masses, no pulsatile masses. [] Skin: Warm, dry, no erythema, no rash. [] Back: No tenderness, no CVA tenderness. [] Extremities: No tenderness, no cyanosis, no clubbing, ROM intact, no edema. [] Neurologic: Alert and oriented X 3, normal motor function, normal sensory function, no focal deficits noted. [] Psychologic: Affect normal, judgement normal, mood normal. [] Current Patient Data Vital Signs Vital Signs Date Time Temp Pulse Resp B/P (MAP) Pulse Ox O2 Delivery O2 Flow Rate FiO2 04/06/19 12:43 98.2 85 16 111/60 (77) 100 Room Air 98.2 Lab Values Laboratory Tests Test 04/06/19 12:38 04/06/19 12:50 Urine Collection Type Unknown Urine Color Yellow Urine Clarity Clear Urine pH 6.5 Urine Specific [place] 1.025 Urine Protein Negative mg/dL (NEG-TRACE) Urine Glucose (UA) Negative mg/dL (NEG) Urine Ketones (Stick) Negative mg/dL (NEG) Urine Blood Negative (NEG) Urine Nitrite Negative (NEG) Urine Bilirubin Negative (NEG) Urine Urobilinogen Dipstick 0.2 mg/dL (0.2 mg/dL) Urine Leukocyte Esterase Small (NEG) Urine RBC 0 /HPF (0-2) Urine WBC 11-20 /HPF (0-4) Urine Squamous Epithelial Cells Mod /LPF Urine Bacteria Few /HPF (0-FEW) Urine Hyaline Casts Few /HPF Urine Mucus Marked /LPF Urine Opiates Screen Neg (NEG) Urine Methadone Screen Neg (NEG) Urine Barbiturates Neg (NEG) Urine Phencyclidine Screen Neg (NEG) Urine Amphetamine/Methamphetamine Neg (NEG) Urine Benzodiazepines Screen Neg (NEG) Urine Cocaine Screen Neg (NEG) Urine Cannabinoids Screen Neg (NEG) Urine Ethyl Alcohol Neg (NEG) White Blood Count 9.8 x10^3/uL (4.0-11.0) Red Blood Count 4.82 x10^6/uL (3.50-5.40) Hemoglobin 13.3 g/dL (12.0-15.5) Hematocrit 40.5 % (36.0-47.0) Mean Corpuscular Volume 84 fL (79-100) Mean Corpuscular Hemoglobin 28 pg (25-35) Mean Corpuscular Hemoglobin Concent 33 g/dL (31-37) Red Cell Distribution Width 15.0 % (11.5-14.5) H Platelet Count 205 x10^3/uL (140-400) Neutrophils (%) (Auto) 69 % (31-73) Lymphocytes (%) (Auto) 21 % (24-48) L Monocytes (%) (Auto) 10 % (0-9) H Eosinophils (%) (Auto) 1 % (0-3) Basophils (%) (Auto) 0 % (0-3) Neutrophils # (Auto) 6.7 x10^3/uL (1.8-7.7) Lymphocytes # (Auto) 2.0 x10^3/uL (1.0-4.8) Monocytes # (Auto) 1.0 x10^3/uL (0.0-1.1) Eosinophils # (Auto) 0.1 x10^3/uL (0.0-0.7) Basophils # (Auto) 0.0 x10^3/uL (0.0-0.2) Maternal Serum HCG Beta Subunit 570156 mIU/mL (0-5) H Sodium Level 138 mmol/L (136-145) Potassium Level 3.6 mmol/L (3.5-5.1) Chloride Level 103 mmol/L (98-107) Carbon Dioxide Level 26 mmol/L (21-32) Anion Gap 9 (6-14) Blood Urea Nitrogen 7 mg/dL (7-20) Creatinine 0.6 mg/dL (0.6-1.0) Estimated GFR (Cockcroft-Gault) 119.0 BUN/Creatinine Ratio 12 (6-20) Glucose Level 89 mg/dL (70-99) Calcium Level 8.8 mg/dL (8.5-10.1) Total Bilirubin 0.2 mg/dL (0.2-1.0) Aspartate Amino Transferase (AST) 15 U/L (15-37) Alanine Aminotransferase (ALT) 21 U/L (14-59) Alkaline Phosphatase 52 U/L (46-116) Total Protein 6.9 g/dL (6.4-8.2) Albumin 3.2 g/dL (3.4-5.0) L Albumin/Globulin Ratio 0.9 (1.0-1.7) L Ethyl Alcohol Level < 10 mg/dL (0-10) Laboratory Tests 04/06/19 12:50 Laboratory Tests 04/06/19 12:50 EKG EKG [] Radiology/Procedures Radiology/Procedures [] Course & Med Decision Making Course & Med Decision Making Pertinent Labs and Imaging studies reviewed. (See chart for details) This is a 29-year-old female patient 3 para 2 currently 9 weeks presenting to the ED today with nausea vomiting and as well as dysuria. CBC, CMP with no acute findings. Urine analysis is noted for small amount of leukocytes, urine appears contaminated though patient has dysuria and is . Patient was given IV fluids, Rocephin, Compazine, promethazine and Zofran. Feeling better. Tolerating Sprite and crackers right now. D/c on keflex and reglan. Follow-up with DATABASE CONSULTANT in the course of this week or next week. Dragon Disclaimer Dragon Disclaimer This electronic medical record was generated, in whole or in part, using a voice recognition dictation system. Departure Departure Impression: Primary Impression: Hyperemesis gravidarum Additional Impression: UTI (urinary tract infection) Disposition: 01 HOME, SELF-CARE Condition: STABLE Referrals: SANDRA PARMAR Jr, MD (PCP) Follow-up in the course of this week Patient Instructions: Diet - Hyperemesis Gravidarum, Hyperemesis Gravidarum, Urinary Tract Infection Additional Instructions: You were seen for nausea and vomiting in . You also have urinary tract infection, we put you on antibiotics, take them as prescribed. Follow-up with your DATABASE CONSULTANT in the course of this week or next week Scripts Cephalexin (CEPHALEXIN) 500 Mg Capsule 1 CAP PO BID, #14 CAP Prov: ASAF RESENDIZ APRN 04/06/19 Metoclopramide Hcl (REGLAN) 10 Mg Tablet 1 TAB PO TID, #15 TAB Prov: ASAF RESENDIZ APRN 04/06/19 Problem Qualifiers Additional Impression: UTI (urinary tract infection) Urinary tract infection type: site unspecified Hematuria presence: without hematuria Qualified Codes: N39.0 - Urinary tract infection, site not specified ASAF RESENDIZ APRN Apr 06, 2019 14:50
== END 2019-04-06 15:27 | disposition home or self-care (01) ==
LOC: ER 11:07
DX: O21.0 Mild hyperemesis gravidarum (principal); O23.41 Unspecified infection of urinary tract in pregnancy, first trimester; Z98.890 Other specified postprocedural states; Z3A.09 9 weeks gestation of pregnancy
CPT/HCPCS: 36415; 80053; 80307; 81001; 84702; 85025; 87086; 96361; 96374; 96375; 99284; G0480; J0696; J0780; J2405; J7030; Q0169

== ENCOUNTER 2019-08-16 05:35 | Observation (INO) | payer OTHER ==
[~2019-08-16] VITALS: Ht 152.4 cm; Wt 78.5 kg
[~2019-08-16 05:35] MED LIST changes: +CEPH500C PO; +METO10TA81 PO
[2019-08-16] MEDS ORDERED: ONDANSETRON PF 4 MG/2 ML VIAL. IV PRN ×2 (05:45→08:45)
[2019-08-16] MEDS ORDERED: ACETAMINOPHEN 325 MG TABLET. PO PRN (05:45)
[2019-08-16] MEDS: IV RINGERS,LACTATED 1000ML 1,000 ML IV SCH ×2 (06:34→08:40)
[2019-08-16 06:55] LABS: BARBITURATES NEG (NEG); BENZODIAZEPINES NEG (NEG); CANNABINOIDS NEG (NEG); COCAINE NEG (NEG); METHADONE NEG (NEG); OPIATES NEG (NEG); PHENCYCLIDINE NEG (NEG)
[2019-08-16 06:56] LABS: AMPHETAMINE/METHAMPHETAMINE NEG (NEG)
[2019-08-16 09:22] LABS: INFLUENZA A PATIENT NEGATIVE (NEGATIVE); INFLUENZA B PATIENT NEGATIVE (NEGATIVE)
[2019-08-16 10:36] LABS: ALBUMIN 2.6 g/dL (3.4-5.0); ALBUMIN/GLOBULIN RATIO 0.7 (1.0-1.7); CALCIUM 8.3 mg/dL (8.5-10.1); CREATININE 0.4 mg/dL (0.6-1.0); GFR 190.1; POTASSIUM 3.6 mmol/L (3.5-5.1); TOTAL BILIRUBIN 0.4 mg/dL (0.2-1.0); TOTAL PROTEIN 6.2 g/dL (6.4-8.2)
[2019-08-16 11:07] LABS: BILIRUBIN,URINE NEGATIVE (NEG); CLARITY,URINE CLEAR; COLOR,URINE YELLOW; NITRITE,URINE NEGATIVE (NEG); PH,URINE 6.5; PROTEIN,URINE NEGATIVE (NEG-TRACE)
[2019-08-16 11:17] LABS: SQUAMOUS EPITHELIAL CELL,UR MOD /LPF
[2019-08-16 11:18] LABS: BACTERIA,URINE 0 /HPF (0-FEW); RBC,URINE RARE /HPF (0-2)
== END 2019-08-16 14:05 | disposition home or self-care (01) ==
LOC: 3 SO LND 05:35
PROVIDERS: ADMIT Obstetrics & Gynecology; ATTEND Obstetrics & Gynecology
DX: O21.2 Late vomiting of pregnancy (principal); Z3A.26 26 weeks gestation of pregnancy
CPT/HCPCS: 36415; 80053; 80307; 81001; 87804; 96361; 96374; G0378; G0379; J2405; J7120

== ENCOUNTER 2019-09-25 22:52 | Observation (INO) | payer OTHER ==
[2019-09-25] MEDS ORDERED: ACETAMINOPHEN 325 MG TABLET. PO PRN (23:00)
[2019-09-25] MEDS ORDERED: IV RINGERS,LACTATED 1000ML 1,000 ML IV SCH (23:00)
[2019-09-25 23:30] LABS: BILIRUBIN,URINE NEGATIVE (NEG); COLOR,URINE YELLOW; NITRITE,URINE NEGATIVE (NEG); PROTEIN,URINE NEGATIVE (NEG-TRACE); UROBILINOGEN,URINE 0.2 mg/dL (0.2 mg/dL)
[2019-09-25 23:34] LABS: CLARITY,URINE CLEAR
[2019-09-25 23:37] LABS: BACTERIA,URINE MANY /HPF (0-FEW); RBC,URINE RARE /HPF (0-2); SQUAMOUS EPITHELIAL CELL,UR MANY /LPF
== END 2019-09-26 00:32 | disposition home or self-care (01) ==
LOC: 3 SO LND 22:52
PROVIDERS: ADMIT Obstetrics & Gynecology; ATTEND Obstetrics & Gynecology
DX: O62.9 Abnormality of forces of labor, unspecified (principal); Z3A.32 32 weeks gestation of pregnancy; Z98.891 History of uterine scar from previous surgery
CPT/HCPCS: 81001; 87086; G0378; G0379

== ENCOUNTER 2019-10-21 16:21 | Inpatient (IN) | payer OTHER ==
[~2019-10-21] VITALS: Ht 152.4 cm; Wt 85.0 kg
[2019-10-21] MEDS ORDERED: ONDANSETRON PF 4 MG/2 ML VIAL. IV PRN (16:45)
[2019-10-21] MEDS ORDERED: MAG HYDROX/ALUMINUM HYD/SIMETH 30 ML ORAL.SUSP PO PRN (16:45)
[2019-10-21] MEDS ORDERED: ACETAMINOPHEN 325 MG TABLET. PO PRN (16:45)
[2019-10-21 16:49] LABS: BILIRUBIN,URINE NEGATIVE (NEG); CLARITY,URINE CLEAR; COLOR,URINE YELLOW; NITRITE,URINE NEGATIVE (NEG); PROTEIN,URINE NEGATIVE (NEG-TRACE); UROBILINOGEN,URINE 0.2 mg/dL (0.2 mg/dL)
[2019-10-21 16:55] LABS: RBC,URINE 0 /HPF (0-2)
[2019-10-21 16:56] LABS: BACTERIA,URINE FEW /HPF (0-FEW); SQUAMOUS EPITHELIAL CELL,UR MOD /LPF
[2019-10-21 16:57] LABS: AMPHETAMINE/METHAMPHETAMINE NEG (NEG); BARBITURATES NEG (NEG); BENZODIAZEPINES NEG (NEG); CANNABINOIDS NEG (NEG); COCAINE NEG (NEG); METHADONE NEG (NEG); OPIATES NEG (NEG); PHENCYCLIDINE NEG (NEG)
--- NOTE | 2019-10-21 18:03 | RAD ---
EXAM: Limited OB Ultrasound INDICATION: Decreased movement TECHNIQUE: Real-time limited obstetrical ultrasound was performed with permanent freeze-frame documentation to assess biophysical profile. COMPARISON: OB ultrasound of 03/17/2019 FINDINGS: POSITION: Cephalic HEART RATE: 135 bpm NIGEL: 13.1 cm PLACENTA: Anterior fundal. Biophysical profile score is as follows: tone: 0 breathin movement: 2 Amniotic fluid: 2 IMPRESSION: Single live intrauterine gestation in cephalic presentation with a biophysical profile score of 4 out of 8. FOR INTERNAL CODING PURPOSES Critical result: Findings reported by technologist Analisa on my behalf to Ana nurse for Dr. SANDRA PARMAR who took the report on his behalf at 10/21/2019 5:35 PM. RESULT CODE: (C) Electronically signed by: Andres Bliss MD (10/21/2019 6:01 PM) [facility]
[2019-10-21 19:00] LABS: ALBUMIN 2.7 g/dL (3.4-5.0); ALBUMIN/GLOBULIN RATIO 0.7 (1.0-1.7); CALCIUM 8.6 mg/dL (8.5-10.1); CREATININE 0.5 mg/dL (0.6-1.0); GFR 146.9; POTASSIUM 3.7 mmol/L (3.5-5.1); TOTAL BILIRUBIN 0.3 mg/dL (0.2-1.0); TOTAL PROTEIN 6.7 g/dL (6.4-8.2)
[2019-10-21] MEDS: BETAMET ACET&NA PHOS 30 MG/5 ML VIAL. IM SCH (19:03)
[2019-10-21] MEDS: IV RINGERS,LACTATED 1000ML 1,000 ML IV SCH (19:04)
[2019-10-22] MEDS: IV RINGERS,LACTATED 1000ML 1,000 ML IV SCH ×3 (02:39→20:21)
--- NOTE | 2019-10-22 09:24 | RAD ---
Biophysical profile: Clinical indications: Decreased movement. Follow-up study from biophysical profile from the day before. Score on that study was 4 out of 8.. COMPARISON: October 21, 2019. Findings: A single intrauterine is present in the cephalic position. heart rate is 126. breathing movements: 0. motion: 2. tone: 0. Amniotic fluid volume: 2. Therefore, the biophysical profile score is 4 out of 8. Cervical length is 4.5 cm. NIGEL using the 4 quadrant method is 10.3 cm. Average umbilical cord S/D ratio is 2.6. Impression: Biophysical profile score remains 4 out of 8. Electronically signed by: Callum Jackson MD (10/22/2019 9:21 AM) [facility]
[2019-10-22] MEDS ORDERED: CITRIC ACID/SODIUM CITRATE 30 ML SOLUTION. PO ONE (09:45)
[2019-10-22] MEDS: BETAMET ACET&NA PHOS 30 MG/5 ML VIAL. IM SCH (10:06)
[2019-10-22 10:08] LABS: BASO # 0.1 x10^3/uL (0.0-0.2); BASO % 0 % (0-3); EOS % 0 % (0-3); HEMATOCRIT 29.8 % (36.0-47.0); HEMOGLOBIN 9.3 g/dL (12.0-15.5); LYMPH # 1.3 x10^3/uL (1.0-4.8); LYMPH % 8 % (24-48); MEAN CORPUSCULAR HEMOGLOBIN 22 pg (25-35); MEAN CORPUSCULAR HGB CONC 31 g/dL (31-37); MEAN CORPUSCULAR VOLUME 71 fL (79-100); MONO % 6 % (0-9); NEUT # 13.5 x10^3/uL (1.8-7.7); NEUT % 85 % (31-73); PLATELET COUNT 187 x10^3/uL (140-400); WHITE BLOOD COUNT 15.9 x10^3/uL (4.0-11.0)
[2019-10-22 11:49] LABS: % BANDS 3 % (0-9); % LYMPHS 6 % (24-48); % MONOS 4 % (0-10); % SEGS 87 % (35-66); ANISOCYTOSIS PRESENT; HYPOCHROMIA PRESENT; MICROCYTOSIS PRESENT; PLT ESTIMATE ADEQUATE (ADEQUATE)
[2019-10-22] MEDS ORDERED: MORPHINE PF 10 MG/10 ML AMPUL. ONE (13:07)
[2019-10-22] MEDS ORDERED: OXYTOCIN 10 UNIT/ML VIAL. ONE ×2 (13:07→16:10)
--- NOTE | 2019-10-22 13:41 | PDOC1 ---
OB - History Hx of Present Care: Good Care Ultrasounds: Normal mid trimester US Obstetrical Complications: None Medical Complications: None Other Concerns: BPP 4/8 Past Family/Social History * Past Medical, Surgical, Family and Obstetric Histories reviewed from chart. Rubella: Immune RPR/VDRL: Negative GBS Status: Unknown HBsAG: Negative OB - Chief Complaint & HPI Date of Admission: Date of Admission: Oct 21, 2019 at 16:21 Chief Complaint/History : 4 Para: 2 EGA: 35 Reason for admission: other (BPP 4/8 and contractions) Indication for : desires repeat Admission Nurse Assessment Rev: Yes OB - Admission Exam Physical Exam HEENT: Normal Heart: Regular Rate Lungs: Clear Abdomen: Gravid, Non tender, Soft Extremities: Edema Reflexes: Normal Cervical Dilatation: Fingertip Effacement: 0% Station: Ballotable Membranes: Intact Accelerations: Accelerations Present Decelerations: Variable decelerations Contractions on Admission: 6-10 Minutes Apart Intensity: Mild Text A: 35 wks IUP PRevious c/s x2 BPP 4/8 P: Admit for repeat c/s. Pt. had repeat sono with repeat score of 4/8 and less amniotic fluid. SANDRA PARMAR Jr, MD Oct 22, 2019 13:41
[2019-10-22] MEDS ORDERED: PHENYLEPHRINE in 0.9% NACL PF 1 MG/10 ML SYRINGE. IV ONE (14:37)
[2019-10-22] MEDS ORDERED: ePHEDrine PF IN SALINE 50 MG/10 ML SYRINGE. IV ONE (14:39)
[2019-10-22] MEDS ORDERED: KETOROLAC 30 MG/ML VIAL. IV PRN (15:00)
[2019-10-22] MEDS ORDERED: METOCLOPRAMIDE HCL 10 MG/2 ML VIAL. ONE (15:04)
--- NOTE | 2019-10-22 15:21 | PDOC4 ---
OB Operative Note Date: Oct 22, 2019 PRE OP DIAGNOSIS: Previoujs C- section (BPP 4/8 and contractions) POST OP DIAGNOSIS: Other (Same) OPERATION PERFORMED: R [facility] Surgeon Dr. Rivas Anesthesia: Regional (Spinal) Blood Loss 700 ml Specimen placenta and OB Findings: Position (Vertex), Sex (Male), (8/9), Weight (6 Lb 14 oz), Nuchal Cord (x1) Complications none Additional Remarks pt. SANDRA Dumont Jr, MD Oct 22, 2019 15:21
[2019-10-22] MEDS ORDERED: MAG HYDROX/ALUMINUM HYD/SIMETH 30 ML ORAL.SUSP PO PRN (15:30)
[2019-10-22] MEDS ORDERED: OXYTOCIN 30 UNIT/500 ML PREMIX 500 ML IV PRN (15:30)
[2019-10-22] MEDS ORDERED: ZOLPIDEM 5 MG TABLET. PO PRN (15:30)
[2019-10-22] MEDS ORDERED: SIMETHICONE 80 MG TAB.CHEW PO PRN (15:30)
[2019-10-22] MEDS ORDERED: diphenhydrAMINE ORAL ELIXIR 12.5 MG/5 ML ML PO PRN (15:30)
[2019-10-22] MEDS ORDERED: ONDANSETRON PF 4 MG/2 ML VIAL. IV PRN (15:30)
[2019-10-22] MEDS ORDERED: 0.9 % SODIUM CHLORIDE 10 ML DISP.SYRIN. IV PRN (15:30)
--- NOTE | 2019-10-22 15:36 | OP ---
DATE OF SURGERY: PREOPERATIVE DIAGNOSES: 1. 35 weeks intrauterine . 2. Previous section. 3. Biophysical profile 4/8 x 2 with decreasing fluid. POSTOPERATIVE DIAGNOSES: 1. 35 weeks intrauterine . 2. Previous section. 3. Biophysical profile 4/8 x 2 with decreasing fluid. PROCEDURE: Repeat low transverse section. SURGEON: Sandra Rivas MD. ANESTHESIA: Spinal. ESTIMATED BLOOD LOSS: 700 mL. COMPLICATIONS: None. FINDINGS: Viable male , Apgars 8 and 9, weight 6 pounds 14 ounces. Three-vessel cord placenta delivered under gentle traction, intact. Nuchal cord x 1. SUMMARY: A 29-year-old 3, para 2 at 35 weeks, presented for decreased movement. The patient underwent biophysical profile, which was 4/8. She had repeat biophysical profile, which again was 4/8 but also had noted decreasing of amniotic fluid. The patient also was having contractions with few variable decelerations. The patient was counseled on the risks and benefits of repeat section, risks, benefits and expectations and voiced clear understanding to proceed. The patient did receive 2 doses of betamethasone to help with lung maturity. DESCRIPTION OF PROCEDURE: The patient was taken to surgery suite and placed in dorsal supine position. She was prepped with ChloraPrep and draped in sterile fashion. After adequate anesthesia, Pfannenstiel skin incision was made with scalpel down to and through the fascia. The fascia was extended laterally using curved Bhagat scissors. Superior edge of fascia was grasped with 2 Juli clamps and dissected free of the abdominal rectus muscles using blunt dissection along with Bovie cautery. The same process took place inferiorly. The abdominal rectus muscles were dissected bluntly at the midline. The peritoneum was grasped with 2 hemostats and entered sharply with Metzenbaum scissors. This incision was extended superiorly as well as inferiorly. The Karsten ring retractor was placed. Low transverse hysterotomy incision was made with scalpel down to and through the amniotic sac, which elicited moderate amount of clear fluid. The hysterotomy incision was extended laterally and superiorly digitally. With aid of fundal pressure, the 's head was delivered in a smooth atraumatic manner. Nuchal cord x 1 was visualized and reduced. With additional fundal pressure, the anterior shoulder was delivered followed by posterior shoulder. Rest of male infant was delivered. was suctioned with bulb syringe orally and nasally, umbilical cord was clamped twice and cut and viable male was handed to waiting nursing staff. Umbilical cord blood and arterial pH was then obtained. Three-vessel cord placenta was delivered under gentle traction, intact. The uterus was then exteriorized and cleared of clot and debris with a moist lap. Hysterotomy incision was reapproximated using #1 Vicryl suture in running locked fashion. [id number] suture was placed in the left apex of the hysterotomy incision for better hemostasis. Uterus palpated firm. Fallopian tubes and ovaries appeared normal bilaterally. Posterior cul-de-sac was cleared of clot and debris with moist lap. The uterus was then returned to the abdomen. Pericolic gutters were cleared of clot and debris with moist lap. Hysterotomy incision was reviewed and was hemostatic. The Karsten ring retractor was removed. The peritoneum was reapproximated using #1 Vicryl suture in running fashion. Abdominal rectus muscles were reapproximated using #1 Vicryl suture in an interrupted fashion. Fascia was reapproximated using Stratafix in a running fashion. Skin was reapproximated using 4-0 Vicryl suture in subcuticular manner. The patient tolerated the procedure well and was taken to recovery room in stable condition. Sponge and needle count correct x 3. SANDRA RIVAS MD DR: JAVIER/roosevelt JOB#: [id number] / [id number]
[2019-10-22] MEDS: FERROUS SULFATE 325 MG TABLET. PO SCH (17:00)
[2019-10-22 17:45] VITALS: BP 109/69
[2019-10-22] MEDS: KETOROLAC 30 MG/ML VIAL. IV PRN (17:55)
[2019-10-22 18:15] VITALS: BP 104/61
[2019-10-22] MEDS ORDERED: PNV1TABL25 PO (19:03)
[2019-10-22 19:31] VITALS: BP 89/52
[2019-10-22 20:46] VITALS: BP 101/60
[2019-10-22 22:29] VITALS: BP 94/66
[2019-10-23] MEDS: IV RINGERS,LACTATED 1000ML 1,000 ML IV SCH ×2 (00:35→04:27)
[2019-10-23] MEDS: KETOROLAC 30 MG/ML VIAL. IV PRN (01:40)
[2019-10-23 04:32] VITALS: BP 103/50
[2019-10-23 05:37] LABS: BASO % 0 % (0-3); EOS % 0 % (0-3); HEMATOCRIT 24.4 % (36.0-47.0); HEMOGLOBIN 7.6 g/dL (12.0-15.5); LYMPH # 1.3 x10^3/uL (1.0-4.8); LYMPH % 6 % (24-48); MEAN CORPUSCULAR HEMOGLOBIN 22 pg (25-35); MEAN CORPUSCULAR HGB CONC 31 g/dL (31-37); MEAN CORPUSCULAR VOLUME 70 fL (79-100); MONO # 2.2 x10^3/uL (0.0-1.1); MONO % 10 % (0-9); NEUT # 17.3 x10^3/uL (1.8-7.7); NEUT % 83 % (31-73); PLATELET COUNT 187 x10^3/uL (140-400); RED BLOOD COUNT 3.48 x10^6/uL (3.50-5.40); RED CELL DISTRIBUTION WIDTH 17.5 % (11.5-14.5); WHITE BLOOD COUNT 20.8 x10^3/uL (4.0-11.0)
[2019-10-23 09:20] VITALS: BP 88/56
[2019-10-23] MEDS: DOCUSATE SODIUM 100 MG CAPSULE. PO PRN (09:25)
[2019-10-23] MEDS: IBUPROFEN 400 MG TABLET. PO PRN ×2 (09:26→19:32)
[2019-10-23] MEDS: FERROUS SULFATE 325 MG TABLET. PO SCH ×2 (09:26→18:15)
[2019-10-23] MEDS: oxyCODONE/APAP 5/325 1 TAB TABLET PO PRN ×2 (09:27→15:31)
--- NOTE | 2019-10-23 13:09 | PDOC ---
OB Progress Note Date of Service 10/23/19 Time of Evaluation 1305 Notes Pt. feeling well. No complaints. Lab Laboratory Tests Test 10/21/19 16:33 10/21/19 18:00 10/22/19 09:25 10/23/19 05:00 Urine Collection Type Unknown Urine Color Yellow Urine Clarity Clear Urine pH 7.0 Urine Specific [place] 1.010 Urine Protein Negative mg/dL (NEG-TRACE) Urine Glucose (UA) Negative mg/dL (NEG) Urine Ketones (Stick) 15 mg/dL (NEG) Urine Blood Negative (NEG) Urine Nitrite Negative (NEG) Urine Bilirubin Negative (NEG) Urine Urobilinogen Dipstick 0.2 mg/dL (0.2 mg/dL) Urine Leukocyte Esterase Moderate (NEG) Urine RBC 0 /HPF (0-2) Urine WBC 11-20 /HPF (0-4) Urine Squamous Epithelial Cells Mod /LPF Urine Bacteria Few /HPF (0-FEW) Urine Opiates Screen Neg (NEG) Urine Methadone Screen Neg (NEG) Urine Barbiturates Neg (NEG) Urine Phencyclidine Screen Neg (NEG) Urine Amphetamine/Methamphetamine Neg (NEG) Urine Benzodiazepines Screen Neg (NEG) Urine Cocaine Screen Neg (NEG) Urine Cannabinoids Screen Neg (NEG) Urine Ethyl Alcohol Neg (NEG) Sodium Level 139 mmol/L (136-145) Potassium Level 3.7 mmol/L (3.5-5.1) Chloride Level 104 mmol/L (98-107) Carbon Dioxide Level 22 mmol/L (21-32) Anion Gap 13 (6-14) Blood Urea Nitrogen 8 mg/dL (7-20) Creatinine 0.5 mg/dL (0.6-1.0) Estimated GFR (Cockcroft-Gault) 146.9 BUN/Creatinine Ratio 16 (6-20) Glucose Level 70 mg/dL (70-99) Calcium Level 8.6 mg/dL (8.5-10.1) Total Bilirubin 0.3 mg/dL (0.2-1.0) Aspartate Amino Transf (AST/SGOT) 17 U/L (15-37) Alanine Aminotransferase (ALT/SGPT) 10 U/L (14-59) Alkaline Phosphatase 327 U/L (46-116) Total Protein 6.7 g/dL (6.4-8.2) Albumin 2.7 g/dL (3.4-5.0) Albumin/Globulin Ratio 0.7 (1.0-1.7) White Blood Count 15.9 x10^3/uL (4.0-11.0) 20.8 x10^3/uL (4.0-11.0) Red Blood Count 4.20 x10^6/uL (3.50-5.40) 3.48 x10^6/uL (3.50-5.40) Hemoglobin 9.3 g/dL (12.0-15.5) 7.6 g/dL (12.0-15.5) Hematocrit 29.8 % (36.0-47.0) 24.4 % (36.0-47.0) Mean Corpuscular Volume 71 fL (79-100) 70 fL (79-100) Mean Corpuscular Hemoglobin 22 pg (25-35) 22 pg (25-35) Mean Corpuscular Hemoglobin Concent 31 g/dL (31-37) 31 g/dL (31-37) Red Cell Distribution Width 17.0 % (11.5-14.5) 17.5 % (11.5-14.5) Platelet Count 187 x10^3/uL (140-400) 187 x10^3/uL (140-400) Neutrophils (%) (Auto) 85 % (31-73) 83 % (31-73) Lymphocytes (%) (Auto) 8 % (24-48) 6 % (24-48) Monocytes (%) (Auto) 6 % (0-9) 10 % (0-9) Eosinophils (%) (Auto) 0 % (0-3) 0 % (0-3) Basophils (%) (Auto) 0 % (0-3) 0 % (0-3) Neutrophils # (Auto) 13.5 x10^3/uL (1.8-7.7) 17.3 x10^3/uL (1.8-7.7) Lymphocytes # (Auto) 1.3 x10^3/uL (1.0-4.8) 1.3 x10^3/uL (1.0-4.8) Monocytes # (Auto) 1.0 x10^3/uL (0.0-1.1) 2.2 x10^3/uL (0.0-1.1) Eosinophils # (Auto) 0.0 x10^3/uL (0.0-0.7) 0.0 x10^3/uL (0.0-0.7) Basophils # (Auto) 0.1 x10^3/uL (0.0-0.2) 0.0 x10^3/uL (0.0-0.2) Segmented Neutrophils % 87 % (35-66) Band Neutrophils % 3 % (0-9) Lymphocytes % 6 % (24-48) Monocytes % 4 % (0-10) Platelet Estimate Adequate (ADEQUATE) Hypochromasia Present Anisocytosis Present Microcytosis Present Laboratory Tests Test 10/23/19 05:00 White Blood Count 20.8 x10^3/uL (4.0-11.0) Red Blood Count 3.48 x10^6/uL (3.50-5.40) Hemoglobin 7.6 g/dL (12.0-15.5) Hematocrit 24.4 % (36.0-47.0) Mean Corpuscular Volume 70 fL (79-100) Mean Corpuscular Hemoglobin 22 pg (25-35) Mean Corpuscular Hemoglobin Concent 31 g/dL (31-37) Red Cell Distribution Width 17.5 % (11.5-14.5) Platelet Count 187 x10^3/uL (140-400) Neutrophils (%) (Auto) 83 % (31-73) Lymphocytes (%) (Auto) 6 % (24-48) Monocytes (%) (Auto) 10 % (0-9) Eosinophils (%) (Auto) 0 % (0-3) Basophils (%) (Auto) 0 % (0-3) Neutrophils # (Auto) 17.3 x10^3/uL (1.8-7.7) Lymphocytes # (Auto) 1.3 x10^3/uL (1.0-4.8) Monocytes # (Auto) 2.2 x10^3/uL (0.0-1.1) Eosinophils # (Auto) 0.0 x10^3/uL (0.0-0.7) Basophils # (Auto) 0.0 x10^3/uL (0.0-0.2) Medications Current Medications Ringer's Solution 1,000 ml @ 125 mls/hr Q8H IV Last administered on 10/22/19at 20:21; Start 10/21/19 at 16:35 Acetaminophen (Tylenol) 650 mg PRN Q6HRS PRN PO PAIN, TEMP > 100.5'F Last administered on 10/22/19at 01:05; Start 10/21/19 at 16:45 Al Hydroxide/Mg Hydroxide (Mylanta Plus Xs) 15 ml PRN Q4HRS PRN PO HEARTBURN / GAS; Start 10/21/19 at 16:45 Ondansetron HCl (Zofran) 4 mg PRN Q6HRS PRN IV NAUSEA; Start 10/21/19 at 16:45; Status Cancel Betamethasone Sodium Phosphate (Celestone Soluspan) 12 mg Q24H IM Last administered on 10/22/19at 10:06; Start 10/21/19 at 19:00; Stop 10/22/19 at 19:01; Status DC Cefazolin Sodium/ Dextrose 50 ml @ 100 mls/hr 1X ONCE IV Last administered on 10/22/19at 11:31; Start 10/22/19 at 10:00; Stop 10/22/19 at 10:29; Status DC Citric Acid/ Sodium Citrate (Bicitra) 30 ml 1X ONCE PO Last administered on 10/22/19at 11:31; Start 10/22/19 at 09:45; Stop 10/22/19 at 09:57; Status DC Oxytocin (Pitocin) 10 unit STK-MED ONCE .ROUTE ; Start 10/22/19 at 13:07; Stop 10/22/19 at 13:07; Status DC Morphine Sulfate (Morphine Preservative Free) 10 mg STK-MED ONCE .ROUTE ; Start 10/22/19 at 13:07; Stop 10/22/19 at 13:07; Status DC Phenylephrine HCl (PHENYLEPHRINE in 0.9% NACL PF) 1 mg STK-MED ONCE IV ; Start 10/22/19 at 14:37; Stop 10/22/19 at 14:37; Status DC Ephedrine Sulfate (ePHEDrine PF IN SALINE SYRINGE) 50 mg STK-MED ONCE IV ; S tart 10/22/19 at 14:39; Stop 10/22/19 at 14:39; Status DC Ketorolac Tromethamine (Toradol 30mg Vial) 30 mg PRN Q6HRS PRN IV PAIN; Start 10/22/19 at 15:00; Stop 10/22/19 at 15:27; Status DC Metoclopramide HCl (Reglan Vial) 10 mg STK-MED ONCE .ROUTE ; Start 10/22/19 at 15:04; Stop 10/22/19 at 15:04; Status DC Sodium Chloride (Normal Saline Flush) 3 ml QSHIFT PRN IV AFTER MEDS AND BLOOD DRAWS; Start 10/22/19 at 15:30 Oxytocin/Sodium Chloride 500 ml @ 125 mls/hr CONT PRN IV EXCESSIVE POST- BLEEDING; Start 10/22/19 at 15:30; Stop 10/22/19 at 23:29; Status DC Ibuprofen (Motrin) 800 mg PRN Q8HRS PRN PO INFLAMMATION Last administered on 10/23/19at 09:26; Start 10/22/19 at 15:30 Ondansetron HCl (Zofran) 4 mg PRN Q6HRS PRN IV NAUSEA/VOMITING Last adminis tered on 10/22/19at 20:21; Start 10/22/19 at 15:30 Docusate Sodium (Colace) 100 mg PRN BID PRN PO CONSTIPATION Last administered on 10/23/19at 09:25; Start 10/22/19 at 15:30 Al Hydroxide/Mg Hydroxide (Mylanta Plus Xs) 30 ml PRN Q4HRS PRN PO HEARTBURN / GAS; Start 10/22/19 at 15:30 Simethicone (Gas-X) 80 mg PRN AFTMEALHC PRN PO GAS / BLOATING Last administered on 10/22/19at 23:47; Start 10/22/19 at 15:30 Diphenhydramine HCl (Benadryl Oral Elixir) 12.5 mg PRN Q6HRS PRN PO ITCHING Last administered on 10/22/19at 23:47; Start 10/22/19 at 15:30 Ferrous Sulfate (Feosol) 325 mg BIDWMEALS PO Last administered on 10/23/19at 09:26; Start 10/22/19 at 17:00 Zolpidem Tartrate (Ambien) 5 mg PRN QHS PRN PO INSOMNIA, MAY REPEAT X1; Start 10/22/19 at 15:30 Oxycodone/ Acetaminophen (Percocet 5/325) 2 tab PRN Q4HRS PRN PO MODERATE PAIN, SEVERE PAIN Last administered on 10/23/19at 09:27; Start 10/22/19 at 15:30 Ketorolac Tromethamine (Toradol 30mg Vial) 30 mg PRN Q6HRS PRN IV PAIN Last administered on 10/23/19at 01:40; Start 10/22/19 at 15:30; Stop 10/27/19 at 15:29 Ephedrine Sulfate (Akovaz) 10 mg PRN Q10MIN PRN IV ELEVATED BP, SEE COMMENTS Last administered on 10/22/19at 16:39; Start 10/22/19 at 16:15 Oxytocin (Pitocin) 10 unit STK-MED ONCE .ROUTE ; Start 10/22/19 at 16:10; Stop 10/22/19 at 16:10; Status DC Multivit/ Folic Acid/Iron (Multivitamin ) 1 tab DAILY PO ; Start 10/23/19 at 10:00 Active Scripts Active Cephalexin 500 Mg Capsule 1 Cap PO BID Reglan (Metoclopramide Hcl) 10 Mg Tablet 1 Tab PO TID Percocet 5-325 Mg Tablet (Oxycodone/Acetaminophen) 1 Each Tablet 1 Tab PO PRN Q6HRS PRN Ibuprofen 800 Mg Tablet 800 Mg PO PRN Q6HRS PRN Colace (Docusate Sodium) 100 Mg Capsule 100 Mg PO BID Prednisone 20 Mg Tablet 1 Tab PO DAILY Acetaminophen-Cod #3 Tablet (Acetaminophen/Codeine Phosphate) 1 Each Tablet 1 Tab PO PRN Q6HRS PRN 10 Days Percocet 5-325 Mg Tablet (Oxycodone/Acetaminophen) 1 Each Tablet 1-2 Tab PO Q4-6HRS Feosol (Ferrous Sulfate) 325 Mg Tablet 325 Mg PO BIDAFTMEAL Ibuprofen 800 Mg Tablet 800 Mg PO PRN Q8HRS PRN Colace (Docusate Sodium) 100 Mg Capsule 100 Mg PO PRN BID PRN [Ondansetron Hcl/Pf] 4 MG/2 ML Vial 4 Mg PO PRN Q6HRS PRN Metoclopramide Hcl 10 Mg/2 Ml Vial 10 Mg PO PRN Q6HRS PRN Reported Tablet (Pnv Cmb#95/Ferrous Fumarate/Fa) 1 Each Tablet 1 Tab PO DAILY 30 Days Nexium Capsule (Esomeprazole Magnesium) 40 Mg Capsule.dr Exam Abd: soft, non tender, fundus firm Incision site: clean, dry and intact Assessment POD#1 s/p repeat c/s Plan of Care: Continue current Tx, Mgmt SANDRA PARMAR Jr, MD Oct 23, 2019 13:09
[2019-10-23] MEDS: PRENATAL MULTIVITAMIN TABLET. PO SCH (15:30)
[2019-10-23 19:40] VITALS: BP 100/61
[2019-10-24] MEDS: oxyCODONE/APAP 5/325 1 TAB TABLET PO PRN ×6 (01:09→22:59)
[2019-10-24] MEDS: IBUPROFEN 400 MG TABLET. PO PRN ×2 (06:39→16:11)
[2019-10-24 06:46] VITALS: BP 106/65
[2019-10-24] MEDS: FERROUS SULFATE 325 MG TABLET. PO SCH ×2 (11:06→16:11)
[2019-10-24] MEDS: DOCUSATE SODIUM 100 MG CAPSULE. PO PRN ×2 (11:06→21:27)
[2019-10-24] MEDS: PRENATAL MULTIVITAMIN TABLET. PO SCH (11:06)
[2019-10-24 11:17] VITALS: BP 102/68
--- NOTE | 2019-10-24 13:13 | PDOC ---
OB Progress Note Date of Service 10/24/19 Time of Evaluation 1310 Notes Pt. feeling well. No complaints. Lab Laboratory Tests Test 10/23/19 05:00 White Blood Count 20.8 x10^3/uL (4.0-11.0) Red Blood Count 3.48 x10^6/uL (3.50-5.40) Hemoglobin 7.6 g/dL (12.0-15.5) Hematocrit 24.4 % (36.0-47.0) Mean Corpuscular Volume 70 fL (79-100) Mean Corpuscular Hemoglobin 22 pg (25-35) Mean Corpuscular Hemoglobin Concent 31 g/dL (31-37) Red Cell Distribution Width 17.5 % (11.5-14.5) Platelet Count 187 x10^3/uL (140-400) Neutrophils (%) (Auto) 83 % (31-73) Lymphocytes (%) (Auto) 6 % (24-48) Monocytes (%) (Auto) 10 % (0-9) Eosinophils (%) (Auto) 0 % (0-3) Basophils (%) (Auto) 0 % (0-3) Neutrophils # (Auto) 17.3 x10^3/uL (1.8-7.7) Lymphocytes # (Auto) 1.3 x10^3/uL (1.0-4.8) Monocytes # (Auto) 2.2 x10^3/uL (0.0-1.1) Eosinophils # (Auto) 0.0 x10^3/uL (0.0-0.7) Basophils # (Auto) 0.0 x10^3/uL (0.0-0.2) Medications Current Medications Ringer's Solution 1,000 ml @ 125 mls/hr Q8H IV Last administered on 10/22/19at 20:21; Start 10/21/19 at 16:35; Stop 10/23/19 at 21:57; Status DC Acetaminophen (Tylenol) 650 mg PRN Q6HRS PRN PO PAIN, TEMP > 100.5'F Last administered on 10/22/19at 01:05; Start 10/21/19 at 16:45 Al Hydroxide/Mg Hydroxide (Mylanta Plus Xs) 15 ml PRN Q4HRS PRN PO HEARTBURN / GAS; Start 10/21/19 at 16:45; Stop 10/24/19 at 12:17; Status DC Ondansetron HCl (Zofran) 4 mg PRN Q6HRS PRN IV NAUSEA; Start 10/21/19 at 16:45; Status Cancel Betamethasone Sodium Phosphate (Celestone Soluspan) 12 mg Q24H IM Last administered on 10/22/19at 10:06; Start 10/21/19 at 19:00; Stop 10/22/19 at 19:01; Status DC Cefazolin Sodium/ Dextrose 50 ml @ 100 mls/hr 1X ONCE IV Last administered on 10/22/19at 11:31; Start 10/22/19 at 10:00; Stop 10/22/19 at 10:29; Status DC Citric Acid/ Sodium Citrate (Bicitra) 30 ml 1X ONCE PO Last administered on 10/22/19at 11:31; Start 10/22/19 at 09:45; Stop 10/22/19 at 09:57; Status DC Oxytocin (Pitocin) 10 unit STK-MED ONCE .ROUTE ; Start 10/22/19 at 13:07; Stop 10/22/19 at 13:07; Status DC Morphine Sulfate (Morphine Preservative Free) 10 mg STK-MED ONCE .ROUTE ; Start 10/22/19 at 13:07; Stop 10/22/19 at 13:07; Status DC Phenylephrine HCl (PHENYLEPHRINE in 0.9% NACL PF) 1 mg STK-MED ONCE IV ; Start 10/22/19 at 14:37; Stop 10/22/19 at 14:37; Status DC Ephedrine Sulfate (ePHEDrine PF IN SALINE SYRINGE) 50 mg STK-MED ONCE IV ; Start 10/22/19 at 14:39; Stop 10/22/19 at 14:39; Status DC Ketorolac Tromethamine (Toradol 30mg Vial) 30 mg PRN Q6HRS PRN IV PAIN; Start 10/22/19 at 15:00; Stop 10/22/19 at 15:27; Status DC Metoclopramide HCl (Reglan Vial) 10 mg STK-MED ONCE .ROUTE ; Start 10/22/19 at 15:04; Stop 10/22/19 at 15:04; Status DC Sodium Chloride (Normal Saline Flush) 3 ml QSHIFT PRN IV AFTER MEDS AND BLOOD DRAWS; Start 10/22/19 at 15:30 Oxytocin/Sodium Chloride 500 ml @ 125 mls/hr CONT PRN IV EXCESSIVE POST- BLEEDING; Start 10/22/19 at 15:30; Stop 10/22/19 at 23:29; Status DC Ibuprofen (Motrin) 800 mg PRN Q8HRS PRN PO INFLAMMATION Last administered on 10/24/19 06:39; Start 10/22/19 at 15:30 Ondansetron HCl (Zofran) 4 mg PRN Q6HRS PRN IV NAUSEA/VOMITING Last administered on 10/22/19at 20:21; Start 10/22/19 at 15:30 Docusate Sodium (Colace) 100 mg PRN BID PRN PO CONSTIPATION Last administered on 10/24/19at 11:06; Start 10/22/19 at 15:30 Al Hydroxide/Mg Hydroxide (Mylanta Plus Xs) 30 ml PRN Q4HRS PRN PO HEARTBURN / GAS Last administered on 10/24/19at 12:37; Start 10/22/19 at 15:30 Simethicone (Gas-X) 80 mg PRN AFTMEALHC PRN PO GAS / BLOATING Last administered on 10/22/19at 23:47; Start 10/22/19 at 15:30 Diphenhydramine HCl (Benadryl Oral Elixir) 12.5 mg PRN Q6HRS PRN PO ITCHING Last administered on 10/22/19at 23:47; Start 10/22/19 at 15:30 Ferrous Sulfate (Feosol) 325 mg BIDWMEALS PO Last administered on 10/24/19at 11:06; Start 10/22/19 at 17:00 Zolpidem Tartrate (Ambien) 5 mg PRN QHS PRN PO INSOMNIA, MAY REPEAT X1; Start 10/22/19 at 15:30 Oxycodone/ Acetaminophen (Percocet 5/325) 2 tab PRN Q4HRS PRN PO MODERATE PAIN, SEVERE PAIN Last administered on 10/24/19at 12:57; Start 10/22/19 at 15:30 Ketorolac Tromethamine (Toradol 30mg Vial) 30 mg PRN Q6HRS PRN IV PAIN Last administered on 10/23/19at 01:40; Start 10/22/19 at 15:30; Stop 10/27/19 at 15:29 Ephedrine Sulfate (Akovaz) 10 mg PRN Q10MIN PRN IV ELEVATED BP, SEE COMMENTS Last administered on 10/22/19at 16:39; Start 10/22/19 at 16:15 Oxytocin (Pitocin) 10 unit STK-MED ONCE .ROUTE ; Start 10/22/19 at 16:10; Stop 10/22/19 at 16:10; Status DC Multivit/ Folic Acid/Iron (Multivitamin ) 1 tab DAILY PO Last administered on 10/24/19at 11:06; Start 10/23/19 at 10:00 Active Scripts Active Cephalexin 500 Mg Capsule 1 Cap PO BID Reglan (Metoclopramide Hcl) 10 Mg Tablet 1 Tab PO TID Percocet 5-325 Mg Tablet (Oxycodone/Acetaminophen) 1 Each Tablet 1 Tab PO PRN Q6HRS PRN Ibuprofen 800 Mg Tablet 800 Mg PO PRN Q6HRS PRN Colace (Docusate Sodium) 100 Mg Capsule 100 Mg PO BID Prednisone 20 Mg Tablet 1 Tab PO DAILY Acetaminophen-Cod #3 Tablet (Acetaminophen/Codeine Phosphate) 1 Each Tablet 1 Tab PO PRN Q6HRS PRN 10 Days Percocet 5-325 Mg Tablet (Oxycodone/Acetaminophen) 1 Each Tablet 1-2 Tab PO Q4-6HRS Feosol (Ferrous Sulfate) 325 Mg Tablet 325 Mg PO BIDAFTMEAL Ibuprofen 800 Mg Tablet 800 Mg PO PRN Q8HRS PRN Colace (Docusate Sodium) 100 Mg Capsule 100 Mg PO PRN BID PRN [Ondansetron Hcl/Pf] 4 MG/2 ML Vial 4 Mg PO PRN Q6HRS PRN Metoclopramide Hcl 10 Mg/2 Ml Vial 10 Mg PO PRN Q6HRS PRN Reported Tablet (Pnv Cmb#95/Ferrous Fumarate/Fa) 1 Each Tablet 1 Tab PO DAILY 30 Days Nexium Capsule (Esomeprazole Magnesium) 40 Mg Capsule.dr Exam Abd: soft, non tender, fundus firm Incision site: clean, dry and intact Assessment POD#2 s/p repeat c/s Plan of Care: Continue current Tx, Mgmt PEGSANDRA RUIZ Jr, MD Oct 24, 2019 13:13
[2019-10-24 17:00] VITALS: BP 111/71
[2019-10-24 21:31] VITALS: BP 108/74
[2019-10-25] MEDS: IBUPROFEN 400 MG TABLET. PO PRN ×3 (00:14→16:30)
[2019-10-25] MEDS: oxyCODONE/APAP 5/325 1 TAB TABLET PO PRN ×4 (03:50→16:30)
[2019-10-25 04:51] VITALS: BP 105/65
--- NOTE | 2019-10-25 08:19 | PDOC3 ---
OB DISCHARGE SUMMARY DATE OF ADMISSION: 10/21/19 DATE OF DISCHARGE: 10/25/19 REASON FOR ADMISSION: section (BPP 4/8 x 2 indicating placental insufficiency) INTRAPARTUM PROCEDURES: : Low Cerv Trans DISCHARGE DIAGNOSIS: Others (Previous c/s, placental insufficiency) DISCHARGE INFORMATION: Activity (ad hafsa), Diet (regular), Instructions (pelvic rest x 6 wks, no driving x 2 wks, no lifting > 20lbs. x 6 wks) HOSPITAL COURSE 35 wks gestation with previous c/s x 2 and placental insufficiency delivered via repeat c/s without complications. SANDRA PARMAR Jr, MD Oct 25, 2019 08:18
[2019-10-25] MEDS ORDERED: OXYC1TAB15 PO (08:22)
[2019-10-25] MEDS ORDERED: IBUP-1060 PO (08:22)
[2019-10-25] MEDS ORDERED: FERR325T72 PO (08:22)
[2019-10-25] MEDS ORDERED: DOCU-109 PO (08:22)
--- NOTE | 2019-10-25 08:23 | DISCH ---
DISCHARGE INSTRUCTIONS Condition on Discharge Condition on Discharge: Stable Activity After Discharge Activity Instructions for Disc: Activity as tolerated Lifting Instructions after Dis: No heavy lifting, No pulling or pushing, Do not lift >10 pounds Driving Instructions after Dis: Do not drive today Weight Bearing Status after Di: As tolerated Diet after Discharge Diet after Discharge: Regular Diet Texture: Regular Contacting the DRSaud after DC Call your doctor for: Concerns you may have Follow-Up Follow up with: Dr. Rivas in 2 wks Treatment/Equipment after DC Adaptive Equipment Issued: None SANDRA RIVAS Jr, MD Oct 25, 2019 08:23
[2019-10-25] MEDS: DOCUSATE SODIUM 100 MG CAPSULE. PO PRN (08:26)
[2019-10-25] MEDS: FERROUS SULFATE 325 MG TABLET. PO SCH (08:26)
[2019-10-25 11:59] VITALS: BP 107/79
--- NOTE | 2019-10-25 14:17 | NUR ---
home instructions gone over with patient on home care and follw up with dr wilson 2 weeks scripts for ibuprofen percocet iron and colace given to pt. no questions on home care
[2019-10-25 17:15] VITALS: BP 103/68
--- NOTE | 2019-10-26 15:07 | PATHOLOGY ---
[facility] Accession Number: [id number] . 01 Material submitted: . placenta - PLACENTA AND CORD . 01 Clinical history: . Repeat section for failed BPP 12/06; 35.6 weeks gestational age; -0-0-2; non-reassuring status; nuchal cord x1, loose; Apgars 9, 9, 9 . 02 Diagnosis: 493 gram late placenta of an estimated 36 weeks gestation with attached membranes and umbilical cord: - No significant pathologic abnormalities. . (JPM:chilango; 10/26/2019) S 10/26/2019 1238 Local . 02 Comment: There is no evidence of an acute chorioamnionitis or villitis. There no infarcts. (JPM:chilango; 10/26/2019) . 02 Electronically signed: . Antonio Tee MD, Pathologist NPI- [id number] . 01 Gross description: . The specimen is received in formalin, labeled "Jannette Ireland Derichards, placenta". Received is a casillas placenta with attached membranes and umbilical cord with a trimmed placental weight of 493 g and measuring 21.1 x 14.8 x 2.6 cm in greatest dimensions. The membranes are pink-lund to pink-mota and translucent in appearance, and the site of membrane rupture is 4.3 cm from the placental margin. The surface is intact displaying a normal arborizing vasculature pattern, as well as focal fibrin deposition around the cord insertion site. The trivascular umbilical cord measures 43.4 cm in length by up to 2.4 cm in diameter and inserts centrally, 5.9 cm from the closest placental margin. The umbilical cord is pale white to blue-green appearance with minimal helical twisting. The maternal surface is intact and complete; a slight amount of adherent blood coagulum is seen on the surface. Sectioning reveals red-brown cut surfaces with no grossly distinct nodules or lesions. The specimen is submitted representatively as follows: . A1 proximal umbilical cord and surface vessels A2 umbilical cord and membrane roll A3-A4 civil rights representative sections of maternal surface. (CAA; 10/25/2019) QAC/QAC 10/26/2019 1237 Local . 02 Pathologist provided ICD-10: O82, Z3A.35, Z37.0 . 02 CPT . 243147 Specimen Comment: A courtesy copy of this report has been sent to [phone], [phone] Specimen Comment: [id number] Specimen Comment: Report sent to / DR CORNEJO Performed at: 01 [facility] [address] [facility] [address], [place] [id number] MD Brennan Mcintyre MD Phone: [phone] Performed at: 02 [facility] [address] [place], [place] [id number] MD Antonio Tee MD Phone: [phone]
== END 2019-10-25 17:53 | disposition home or self-care (01) | DRG 788 ==
LOC: 3 SO LND 16:21 → OBSVTOIN 16:21 → 3 SO LND 10-22 17:45
PROVIDERS: ADMIT Obstetrics & Gynecology; ATTEND Obstetrics & Gynecology
PROC: 10D00Z1 Extraction of Products of Conception, Low, Open Approach (ICD-10-PCS; principal; 2019-10-22)
DX: O34.211 Maternal care for low transverse scar from previous cesarean delivery (principal); O36.8130 Decreased fetal movements, third trimester, not applicable or unspecified; O69.81X0 Labor and delivery complicated by cord around neck, without compression, not applicable or unspecified; O76 Abnormality in fetal heart rate and rhythm complicating labor and delivery; Z3A.35 35 weeks gestation of pregnancy; Z37.0 Single live birth
CPT/HCPCS: 36415; 76819; 80053; 80307; 81001; 85007; 85025; 86850; 86900; 86901; 87086; G0378; J0171; J0696; J0702; J1885; J2274; J2370; J2405; J2590; J2765; J7120

== ENCOUNTER → 2021-05-08 | Outpatient (CLI) | payer BC, OTHER ==
[~2021-05-08] MED LIST changes: +PNV1TABL25 PO
--- NOTE | 2021-05-08 14:18 | RAD ---
EXAMINATION: US PELVIS COMPLETE, 05/08/2021 9:51 AM CLINICAL INDICATION: Dysmenorrhea, menorrhagia TECHNIQUE: Grayscale, color and spectral Doppler ultrasound images of the pelvis via transabdominal a pproach only. COMPARISON: None. FINDINGS: The uterus measures 10.5 x 5.3 x 4.1 cm. The endometrial stripe measures 5 mm in thickness. No myomet rial mass. The right ovary measures 2.9 x 1.8 x 1.7 cm. The left ovary measures 5.6 x 3.2 x 2.6 cm. Normal bloo d flow to both ovaries. There is a possible isoechoic mass in the left ovary measuring 2.8 x 2.8 cm w ith some peripheral blood flow but no definite internal blood flow. No free fluid. IMPRESSION: Possible 2.8 cm isoechoic mass in the left ovary with some peripheral blood flow. This co uld be a corpus luteum cyst or hemorrhagic cyst. Recommend follow-up ultrasound in 8-12 weeks to ensu re resolution. Electronically signed by: Cherie Gómez MD (05/08/2021 2:16 PM) [id number]
== END ==
LOC: US 09:51
PROVIDERS: ATTEND Obstetrics & Gynecology
DX: Z01.419 Encounter for gynecological examination (general) (routine) without abnormal findings (principal); N94.6 Dysmenorrhea, unspecified; N92.0 Excessive and frequent menstruation with regular cycle
CPT/HCPCS: 76856

== ENCOUNTER → 2021-06-17 | Outpatient (CLI) | payer BC ==
--- NOTE | 2021-06-17 08:42 | RAD ---
INDICATION: Reason: CYST OF OVARY / Spl. Instructions: / History: COMPARISON: May 08, 2021 TECHNIQUE: Grayscale and color ultrasound images uterus and adnexa. FINDINGS: Uterus: 97 x 59 x 42 mm. 4 mm endometrial stripe Right Ovary: 32 x 20 x 20 mm. Left Ovary: 34 x 31 x 25 mm. Vascular flow identified to bilateral ovaries. IMPRESSION: * Hypoechoic lesion of the left ovary is not seen. Electronically signed by: Brian Whalen MD (06/17/2021 8:40 AM) [id number]
== END ==
LOC: US 09:33
PROVIDERS: ATTEND Obstetrics & Gynecology
DX: N83.201 Unspecified ovarian cyst, right side (principal)
CPT/HCPCS: 76856